=== PATIENT | female | born 1980 | race Caucasian/White ===

== ENCOUNTER 2018-12-13 11:05 | Emergency (ER) | payer OTHER, SELFPAY ==
[2018-12-13 11:07] VITALS: BP 127/93; PULSE 74; RESP 16; TEMP 36.8; O2SAT 99; BMI 23.8
--- NOTE | 2018-12-13 11:41 | PC.NURSE ---
Pt out in the sun and has sunburn bilateral legs, right>left. Applied a mix of silvidene cream and lidocaine ointment to area then covered it with telfa and kerlix. Instructed pt how to apply.
--- NOTE | 2018-12-13 12:15 | ED.LOWEXIN ---
HPI - Extremity Injury (Lower) <Ari JosephCALIP - Last Filed: 12/13/18 23:54> General Chief Complaint: Extremity Injury, Lower Stated Complaint: Rt foot swollen,blisters Time Seen by Provider: 12/13/18 11:26 Source: patient Mode of arrival: ambulatory Limitations: no limitations History of Present Illness HPI Narrative: This is a pleasant 38-year-old female, nonsmoker, with history of Sharath's disease who presents with first-degree sunburn to bilateral legs and with a small blister in right medial knee region on . She reports she was in outdoor during afternoon helping her friend and had sustained a first-degree sunburn to right medial thigh to ankle and left lateral thigh to calf area. Later on she developed multiple very fine vesicles in the right medial knee region along small round bulla in less than 2 cm in diameter. She complains of generalized swelling to right leg, pain, warmth to touch on affected areas. The pain is worse around the bulla when it is touched. She has used aloe with lidocaine cream and had taken Motrin for discomfort and also adequately hydrated with water last couple of days. She reports the swelling has improved as compared to yesterday. She denies fever, chills, nausea or vomiting. Related Data Home Medications Medication Instructions Recorded Confirmed multivitamin tablet 1 tab PO DAILY 11/24/17 12/13/18 Previous Rx's Medication Instructions Recorded metronidazole 1 % topical gel 1 applictn TOP DAILY #60 gram 11/24/17 tretinoin 0.1 % topical cream 1 applictn TOP BEDTIME #45 gram 11/24/17 Allergies Allergy/AdvReac Type Severity Reaction Status Date / Time Penicillins [PENICILLINS] Allergy Intermediate hives Verified 12/13/18 11:21 Review of Systems <Ari Joseph FLOATING DERRICK OPERATOR - Last Filed: 12/13/18 23:54> Review of Systems General: See HPI HEENT: Denies sinus pain, ear pain, sore throat, difficulty swallowing, dizziness. Respiratory: Denies dyspnea, cough, wheezing, hemoptysis, sputum. Cardiovascular: Denies chest pain, palpitations, orthopnea, edema. Gastrointestinal: Denies nausea, vomiting, abdominal pain, diarrhea, constipation, melena. : Denies dysuria, frequency, incontinence, hematuria, urinary retention. Musculoskeletal: Denies weakness, joint pain or bony pain. Skin: Sunburn on bilateral legs without small blisters on right medial knee, painful to be touched. Neurologic: Denies weakness, headache, numbness, change in speech, confusion, seizures, incoordination. Psychiatric: No concerning psychosocial issues. 12-point review of systems is negative except for those stated above. PFSH <OSCAR Herrera - Last Filed: 12/13/18 23:54> Surgical History Anesthesia (Resolved) History of breast augmentation (~2014) Family History Father Age: 82 Colon cancer Hypertension Type 1 diabetes Mother Age: 67 Type 1 diabetes Hypertension High cholesterol Grandfather Diabetes mellitus Sister Age: 61 Hypertension Sister Age: 59 Hypertension Grandmother No problems noted. Social History marital status: number of children: 2 household members: family lives independently: Yes education level: college occupational status: employed (RN) Smoking Status: Never smoker alcohol intake: current substance use type: does not use Family History Father Age: 82 Colon cancer Hypertension Type 1 diabetes Mother Age: 67 Type 1 diabetes Hypertension High cholesterol Grandfather Diabetes mellitus Sister Age: 61 Hypertension Sister Age: 59 Hypertension Grandmother No problems noted. Social History marital status: number of children: 2 household members: family lives independently: Yes education level: college occupational status: employed (RN) Smoking Status: Never smoker alcohol intake: current substance use type: does not use Exam <OSCAR Herrera - Last Filed: 12/13/18 23:54> Narrative Exam Narrative: GEN: Alert, oriented x 3, well appearing and nourished, and in no acute distress. Head: Normal cephalic, atraumatic. No scalp or temporal tenderness, palpable mass or rash. EYES: Pupils are equal, round, and reactive to light and accommodation. Extraocular muscles are intact bilaterally. There is no subconjunctival hemorrhage, exudate and sclera non-icteric. ENT: Hearing grossly intact. Nose without bleeding, purulent discharge. Mucous membrane moist, no mucosal lesion. Throat without erythema, tonsillar hypertrophy or exudate. Uvula in midline, airway patent. Neck: Trachea in midline. No JVD, non-tender without lymphadenopathy. No masses or thyroid megaly. Supple, non-tender and meningeal signs. CARDIAC: Normal regular rate and rhythm without murmurs, gallops, or rubs. No chest wall tenderness. No peripheral edema, cyanosis or pallor. Capillary refill is less than 2 seconds. RESPIRATORY: Lungs are cleat to auscultate bilaterally. No cough, wheezes, rales, or rhonchi. No stridor, respiratory distress, increase work of breathing, or accessary muscle used. ABD: Abdomen soft, nontender and non-distended. No guarding or rebound tenderness to palpate. Bowel sounds are normal in all 4 quadrants. There is no palpable masses or organomegaly. EXT: Full painless ROM of all extremities with no loss of sensation, strength, effusion or edema. SKIN: Superficial burn on medial aspect on R thigh to ankle and L lateral thigh to calf. Multiple very fine vesicles with a bulla size <2cm near R medial knee. R lower leg with mild non-pitting edema and warm to touch. NEUROLOGICAL: Alert and oriented to place, time and person. Sensation and motor function intact bilaterally. No facial droops, dysphasia. PSYCHIATRIC: Good judgement and reason, without hallucinations, abnormal affect or abnormal behaviors during the examination. Initial Vital Signs Initial Vital Signs: Vital Signs Temperature 98.2 F 12/13/18 11:07 Pulse Rate 74 12/13/18 11:07 Respiratory Rate 16 12/13/18 11:07 Blood Pressure 127/93 H 12/13/18 11:07 Pulse Oximetry 99 12/13/18 11:07 <Niki Scott MD - Last Filed: 12/15/18 07:44> Initial Vital Signs Initial Vital Signs: Vital Signs Temperature 98.2 F 12/13/18 11:07 Pulse Rate 74 12/13/18 11:07 Respiratory Rate 16 12/13/18 11:07 Blood Pressure 127/93 H 12/13/18 11:07 Pulse Oximetry 99 12/13/18 11:07 Course <OSCAR Herrera - Last Filed: 12/13/18 23:54> Orders Ordered: Discontinued Medications Lidocaine (Lidocaine Oint) 1 applic TOP NOW ONE Stop: 12/13/18 12:11 Last Admin: 12/13/18 12:37 Dose: 1 applic Silver Sulfadiazine (Silvadene) 1 applic TOP NOW ONE Stop: 12/13/18 12:11 Last Admin: 12/13/18 12:37 Dose: 1 applic Vital Signs - 8 hr 12/13/18 11:07 Temperature 98.2 F Pulse Rate 74 Respiratory Rate 16 Blood Pressure 127/93 H Pulse Oximetry 99 <Niki Scott MD - Last Filed: 12/15/18 07:44> Orders Ordered: Discontinued Medications Lidocaine (Lidocaine Oint) 1 applic TOP NOW ONE Stop: 12/13/18 12:11 Last Admin: 12/13/18 12:37 Dose: 1 applic Silver Sulfadiazine (Silvadene) 1 applic TOP NOW ONE Stop: 12/13/18 12:11 Last Admin: 12/13/18 12:37 Dose: 1 applic Vital Signs - 8 hr 12/13/18 11:07 Temperature 98.2 F Pulse Rate 74 Respiratory Rate 16 Blood Pressure 127/93 H Pulse Oximetry 99 MDM - Extremity Injury (Lower) <OSCAR Herrera - Last Filed: 12/13/18 23:54> Differential Diagnosis Likely other (superficial burn, cellulitis) MDM Narrative Medical decision making narrative: This is a pleasant 38 year old female presents with sunburn and she sustained superficial burn to bilateral legs with very small area of superficial partial thickness in right medial knee region along the superficial burn. She does not report constitutional symptoms. She reports her swelling to right leg has improved since yesterday. She complains of increasing pain whenever her right medial knee with multiple find vesicles and small bulla is attached unintentionally. Given her symptoms, her burn on right medial knee area was dressed after a mixture of EMLA cream and Silvadene ointment applied. She was advised not to pop the bulla to avoid increasing risk for infection. We discussed red flag symptoms for signs and symptoms of infection such as increasing pain/redness/warmth, fever, chills, purulent discharge. She was advised to use the rest of the medications that used in ED to address her right medial knee for comfort and to prevent infection. No further questions expressed by patient and she agrees with the plan of treatment. Discharge Plan Departure Patient Disposition: Home Clinical Impression: Burn from the sun Discharge Date/Time: 12/13/18 12:47 Interventions: ED Discharge Assessment Last Done: 12/13/18 12:46 Instructions: DI for Sunburn Activity Restrictions/Additional Instructions: You have been diagnosed with [ sunburn on your legs. There's a small 2nd degree burn to R medial leg and large 1st degree burn to bilateral leg ]. What to do: *Take your medications as directed. It is okay to take [id number] Tylenol and/or Motrin as needed for pain and inflammation. Please follow the directions on the bottle. He could also use cool compresses, aloe based gels, calamine lotion or bacitracin/Neosporin on affected painful area with a dressing. *Follow up with your primary care provider in 2-3 days, call for an appointment. Let them know you were seen in the ED and that we asked you to be seen in follow up. *Return to ED if you have any new, worsening, or concerning symptoms, such as [increasing pain/warmth,spreading redness, fever, purulent discharge, chest pain, difficulty, any acute concerns]. Prescriptions: No Action multivitamin tablet 1 tab PO DAILY RF: 0 tretinoin [Retin-A] 0.1 % cream 1 applictn TOP BEDTIME Qty: 45 RF: 1 metronidazole [Metrogel] 1 % gel 1 applictn TOP DAILY Qty: 60 RF: 1 Referrals: Alissa Stephen DO [Primary Care Provider] -
[2018-12-13 12:34] VITALS: BP 133/77; PULSE 56; RESP 15; O2SAT 100
[2018-12-13] MEDS: SILVER SULFADIAZINE 1% CREAM 25 GM 1 APPLIC TOP (12:37)
[2018-12-13] MEDS: LIDOCAINE 5% OINT 35 GM 1 APPLIC TOP (12:37)
== END 2018-12-13 12:47 | disposition home or self-care (01) ==
PROVIDERS: Emergency Provider Nurse Practitioner Family; PCP Family Medicine
DX: L55.9 Sunburn, unspecified (principal)
CPT/HCPCS: 99282; 99283

== ENCOUNTER → 2019-06-03 11:11 | Outpatient (CLI) | payer OTHER, SELFPAY ==
[2019-06-03 12:32] LABS: Bilirubin Urine UA NEGATIVE (NEGATIVE); Color Urine UA YELLOW; Glucose Urine UA NEGATIVE (Negative); Ketones Urine UA NEGATIVE (NEGATIVE); Leukocyte Esterase Urine UA 2+ (NEGATIVE); Nitrite Urine UA NEGATIVE (Negative); Occult Blood Urine UA 3+ (Negative); Protein Urine UA NEGATIVE (Negative); Specific Gravity Urine UA <=1.005 (1.000-1.035); Urobilinogen Urine UA 0.2 E.U./dL (0.2)
[2019-06-03 12:42] LABS: Appearance Urine UA Slightly Cloudy; pH Urine UA 6.5 (4.5-8.0)
[2019-06-03 12:43] LABS: Amorphous Sediment Urine 1+; Bacteria Urine Moderate (10-30); Culture Indicated Urine Specimen Cultured; RBC Urine 1-5/HPF (0-5/HPF); Squamous Epithelial Cell Urine 1-5 /HPF (0-5/HPF); WBC Urine 30-100/HPF (0-5/HPF)
== END ==
PROVIDERS: PCP Family Medicine; Visit Provider Family Medicine
DX: R30.0 Dysuria (principal); R35.0 Frequency of micturition; R39.15 Urgency of urination
CPT/HCPCS: 81001; 87077; 87086; 87186

== ENCOUNTER → 2019-12-01 09:01 | Outpatient (CLI) | payer OTHER, SELFPAY ==
[2019-12-01 10:23] LABS: Appearance Urine UA CLOUDY; Bilirubin Urine UA NEGATIVE (NEGATIVE); Color Urine UA YELLOW; Glucose Urine UA NEGATIVE (Negative); Ketones Urine UA TRACE (NEGATIVE); Leukocyte Esterase Urine UA 2+ (NEGATIVE); Nitrite Urine UA POSITIVE (Negative); Occult Blood Urine UA 3+ (Negative); Protein Urine UA 2+ (Negative); Urobilinogen Urine UA 0.2 E.U./dL (0.2)
[2019-12-01 10:24] LABS: pH Urine UA 5.5 (4.5-8.0)
[2019-12-01 10:44] LABS: Bacteria Urine Many (>30); Culture Indicated Urine Specimen Cultured; Mucus Urine 1+ (Negative); RBC Urine >100/HPF (0-5/HPF); Squamous Epithelial Cell Urine 1-5 /HPF (0-5/HPF); WBC Urine >100/HPF (0-5/HPF)
== END ==
PROVIDERS: PCP Family Medicine; Referring Provider Family Medicine; Visit Provider Family Medicine
DX: R30.0 Dysuria (principal); R35.0 Frequency of micturition; R39.15 Urgency of urination
CPT/HCPCS: 81001; 87077; 87086; 87186

== ENCOUNTER → 2020-01-05 15:08 | Outpatient (CLI) | payer OTHER, SELFPAY ==
[2020-01-05 15:40] LABS: Appearance Urine UA CLOUDY; Bilirubin Urine UA NEGATIVE (NEGATIVE); Color Urine UA YELLOW; Glucose Urine UA NEGATIVE (Negative); Ketones Urine UA TRACE (NEGATIVE); Leukocyte Esterase Urine UA 2+ (NEGATIVE); Nitrite Urine UA NEGATIVE (Negative); Occult Blood Urine UA 3+ (Negative); Protein Urine UA NEGATIVE (Negative); Specific Gravity Urine UA 1.015 (1.000-1.035); Urobilinogen Urine UA 0.2 E.U./dL (0.2)
[2020-01-05 15:43] LABS: pH Urine UA 5.5 (4.5-8.0)
[2020-01-05 15:49] LABS: Bacteria Urine Moderate (10-30); Culture Indicated Urine Specimen Cultured; RBC Urine 10-30/HPF (0-5/HPF); Squamous Epithelial Cell Urine 0-1 /HPF (0-5/HPF); WBC Urine >100/HPF (0-5/HPF)
== END ==
PROVIDERS: PCP Family Medicine; Referring Provider Family Medicine; Visit Provider Family Medicine
DX: R30.0 Dysuria (principal)
CPT/HCPCS: 81001; 87077; 87086; 87147; 87186

== ENCOUNTER → 2020-05-26 15:08 | Outpatient (CLI) | payer OTHER, SELFPAY ==
[2020-05-26] MEDS: COVID-19 VACC(MODERNA-1)/PF 100 MCG/0.5 ML VIAL IM (15:15)
== END ==
PROVIDERS: PCP Family Medicine; Visit Provider Internal Medicine
DX: Z23 Encounter for immunization (principal)
CPT/HCPCS: 0011A; 91301

== ENCOUNTER → 2020-06-22 15:39 | Outpatient (CLI) | payer OTHER, SELFPAY ==
[2020-06-22] MEDS: COVID-19 VACC #2, MRNA(MOD) 100 MCG/0.5 ML VIAL IM (15:45)
== END ==
PROVIDERS: PCP Family Medicine; Visit Provider Internal Medicine
DX: Z23 Encounter for immunization (principal)
CPT/HCPCS: 0012A; 91301

== ENCOUNTER → 2020-08-01 16:54 | Outpatient (CLI) | payer OTHER, SELFPAY ==
[2020-08-01 17:28] LABS: Add Manual Diff / Slide Review NO; Basophils Absolute Auto 100 /uL (0-100); Basophils Percent Auto 0.7 % (0-2); Eosinophils Absolute Auto 100 /uL (0-450); Eosinophils Percent Auto 1.4 % (2-4); Hematocrit 38.9 % (36-46); Hemoglobin 13.4 g/dL (12.0-16.0); Lymphocytes Absolute Auto 2900 /uL (1100-4500); Lymphocytes Percent Auto 35.3 % (25-40); Mean Corpuscular HGB Conc 34.5 % (30-36); Mean Corpuscular Hemoglobin 30.8 PG (26-34); Mean Corpuscular Volume 89.4 fL (80-100); Monocytes Absolute Auto 600 /uL (0-900); Monocytes Percent Auto 7.1 % (3-14); Neutrophils Absolute Auto 4600 /uL (1500-7000); Neutrophils Percent Auto 55.5 % (50-75); Platelet Count 246 X10^3/uL (150-400); Red Blood Cell Count 4.36 X10^6/uL (4.0-5.2); Red Cell Distribution Width 12.6 % (11.6-14.8); White Blood Cell Count 8.3 X10^3/uL (4.5-11.0)
[2020-08-01 17:39] LABS: Alanine Aminotransferase 20 IU/L (<35); Albumin 4.6 g/dL (3.5-5.0); Albumin Globulin Ratio 1.6 (1.0-2.8); Alkaline Phosphatase 74 U/L (38-126); Aspartate Aminotransferase 32 IU/L (14-36); BUN Creatinine Ratio 22.2 (6-22); Bilirubin Total 0.2 mg/dL (0.2-1.3); Blood Urea Nitrogen 20 mg/dL (7-17); Calcium 9.4 mg/dL (8.4-10.2); Carbon Dioxide 32 mmol/L (22-32); Chloride 100 mmol/L (98-107); Estimated Glomerular Filt Rate > 60.0 mL/min (>60); Globulin 2.9 g/dL (1.7-4.1); Glucose 92 mg/dL (70-100); HEMOLYSIS < 15 (0-50); Potassium 3.9 mmol/L (3.4-5.1); Sodium 136 mmol/L (137-145); Total Protein 7.5 g/dL (6.3-8.2)
[2020-08-01 18:15] LABS: TSH w/ Reflex to FT4 3.18 uIU/mL (0.47-4.68)
== END ==
PROVIDERS: PCP Family Medicine; Referring Provider Family Medicine; Visit Provider Family Medicine
DX: N97.9 Female infertility, unspecified (principal)
CPT/HCPCS: 36415; 80053; 82397; 84443; 85025

== ENCOUNTER → 2020-09-22 12:19 | Outpatient (CLI) | payer OTHER, SELFPAY ==
[2020-09-22 12:57] LABS: Add Manual Diff / Slide Review NO; Basophils Absolute Auto 0 /uL (0-100); Basophils Percent Auto 0.4 % (0-2); Eosinophils Absolute Auto 0 /uL (0-450); Eosinophils Percent Auto 0.5 % (2-4); Hematocrit 36.6 % (36-46); Hemoglobin 12.8 g/dL (12.0-16.0); Lymphocytes Absolute Auto 2400 /uL (1100-4500); Lymphocytes Percent Auto 31.7 % (25-40); Mean Corpuscular Volume 88.5 fL (80-100); Monocytes Absolute Auto 500 /uL (0-900); Monocytes Percent Auto 6.6 % (3-14); Neutrophils Absolute Auto 4700 /uL (1500-7000); Neutrophils Percent Auto 60.8 % (50-75); Platelet Count 232 X10^3/uL (150-400); Red Blood Cell Count 4.14 X10^6/uL (4.0-5.2); Red Cell Distribution Width 12.4 % (11.6-14.8); White Blood Cell Count 7.7 X10^3/uL (4.5-11.0)
[2020-09-22 13:00] LABS: Appearance Urine UA CLEAR; Bilirubin Urine UA NEGATIVE (NEGATIVE); Color Urine UA YELLOW; Glucose Urine UA NEGATIVE (Negative); Ketones Urine UA NEGATIVE (NEGATIVE); Leukocyte Esterase Urine UA NEGATIVE (NEGATIVE); Nitrite Urine UA NEGATIVE (Negative); Occult Blood Urine UA NEGATIVE (Negative); Protein Urine UA NEGATIVE (Negative); Specific Gravity Urine UA 1.015 (1.000-1.035); Urobilinogen Urine UA 0.2 E.U./dL (0.2)
[2020-09-22 13:34] LABS: Free T4, Direct Thyroxine 1.42 ng/dL (0.78-2.19)
[2020-09-22 13:48] LABS: Thyroid Stimulating Hormone 1.56 uIU/mL (0.47-4.68)
[2020-09-23 06:10] LABS: RPR Screen Non Reactive (Non Reactive)
[2020-09-23 08:11] LABS: Varicella IgG Antibody 1475 index (Immune >165)
[2020-09-25 16:24] LABS: Hepatitis B Surface Antigen NEGATIVE s/c (NEGATIVE)
[2020-09-25 17:33] LABS: HIV 1 & 2 Ab/Ag 4th Gen Combo NEGATIVE (NEGATIVE); Hep C Virus Ab w/Reflex Quant NEGATIVE s/c (NEGATIVE)
== END ==
PROVIDERS: PCP Family Medicine; Referring Provider Family Medicine; Visit Provider Family Medicine
DX: Z34.81 Encounter for supervision of other normal pregnancy, first trimester (principal); E06.3 Autoimmune thyroiditis
CPT/HCPCS: 36415; 80055; 81003; 84439; 84443; 86787; 86803; 86850; 86900; 86901; 87086; 87389

== ENCOUNTER → 2020-10-10 14:03 | Outpatient (CLI) | payer OTHER, SELFPAY ==
--- NOTE | 2020-10-10 14:04 | DI.US.S_ITS ---
PROCEDURE: US OB <= 14 WEEKS FETUS INDICATIONS: Early viability/dating; LMP 08/16/20 OUTSIDE/PRIOR DATING DATA: Last menstrual period (LMP): 08/16/20. LMP-based estimated date of delivery (RICK): 05/23/21. First dating scan (date and location): 10/10/20. Estimated date of delivery (RICK) from first dating scan: 05/23/21. TECHNIQUE: Real-time scanning was performed of the fetus and maternal pelvic organs, with image documentation. Endovaginal scanning was also performed to better visualize the fetus and maternal ovaries. COMPARISON: None. FINDINGS: Embryo: Single living intrauterine fetus is present with a crown-rump length measuring 1.6 cm, 7 weeks 6 days. heart rate measures 137 beats per minute. Yolk sac is visualized. There is a perigestational hemorrhage measuring 4 x 5 x 11 mm. Cervical length 4.3 cm. Measurement variability in dating: +/- 4 weeks by LMP, +/- 7 days by mean sac diameter (use before 6 weeks gestation if crown-rump length not able to be measured), +/- 5 days by crown-rump length (up to 8 weeks 6 days gestation), +/- 7 days by crown-rump length (up to 13 weeks 6 days gestation). Maternal organs: Ovaries unremarkable bilaterally. . IMPRESSION: Single living intrauterine fetus with a gestational age measuring 7 weeks 6 days. Ultrasound RICK of 05/23/21 concordant with the reported LMP as above Incidentally noted small perigestational hemorrhage. Dictated by: John Castillo M.D. on 10/10/2020 at 15:38 Approved by: John Castillo M.D. on 10/10/2020 at 15:40
== END ==
PROVIDERS: PCP Family Medicine; Referring Provider Family Medicine; Visit Provider Family Medicine
DX: Z36.87 Encounter for antenatal screening for uncertain dates (principal); Z3A.01 Less than 8 weeks gestation of pregnancy
CPT/HCPCS: 76801

== ENCOUNTER → 2020-12-29 16:06 | Outpatient (CLI) | payer OTHER, SELFPAY ==
[2020-12-29 18:52] LABS: TSH w/ Reflex to FT4 1.38 uIU/mL (0.47-4.68)
[2020-12-30 07:16] LABS: Alpha Fetoprotein 36.2 ng/mL (0.0-8.3)
== END ==
PROVIDERS: PCP Family Medicine; Referring Provider Family Medicine; Visit Provider Family Medicine
DX: E06.3 Autoimmune thyroiditis (principal); Z3A.15 15 weeks gestation of pregnancy
CPT/HCPCS: 36415; 82105; 84443

== ENCOUNTER → 2021-01-02 11:41 | Outpatient (CLI) | payer OTHER, SELFPAY ==
--- NOTE | 2021-01-02 15:05 | DI.US.S_ITS ---
PROCEDURE: OB >= 14 WEEKS FETUS INDICATIONS: ANATOMY OUTSIDE/PRIOR DATING DATA: Last menstrual period (LMP): 08/16/2020. LMP-based estimated date of delivery (RICK): 05/23/2021 . First dating scan (date and location): 10/10/2020 . Estimated date of delivery (RICK) from first dating scan: 05/23/2021 . TECHNIQUE: Real-time scanning was performed of the fetus, with image documentation and biometric measurements. Endovaginal scanning: No COMPARISON: Outside Facility, [facility], 11/08/2020, 12:50. [facility], OB <= 14 WEEKS FETUS, 10/10/2020, 13:16. FINDINGS: General: A single living intrauterine gestation is present. Presentation: Vertex. Placenta: Placental position is anterior , without previa. Amniotic fluid index: 15.1 cm, normal range is 5-24 cm. heart rate: 150 beats per minute. Maternal cervical canal: 3. 0 cm long. Normal lower limit is 2.5 cm. biometrics: Biparietal diameter: 20 weeks 2 days Head circumference: 19 weeks 6 days Abdominal circumference: 20 weeks 5 days Femur length: 19 weeks 4 days Estimated gestational age from initial scan: 19 weeks 6 days Composite gestational age from present scan: 20 weeks 1 day Estimated weight and percentile: 334 g; 61st percentile. Measurement variability for biometric dating: +/- 7 days from 14 weeks to 15 weeks 6 days gestation, +/- 10 days from 16 weeks to 21 weeks 6 days gestation, +/- 2 weeks from 22 weeks to 27 weeks 6 days gestation, +/- 3 weeks for 28 weeks gestation or later. weight reference: 4500 g or EFW >90/95% is considered macrosomia or large for gestational age. EFW <10% is small for gestational age. EFW 5% or less is considered intra-uterine growth restriction. Anatomic survey: Neuro: Ventricles are non-dilated at less than 10 mm. Cisterna magna is normal at 3-11 mm. Cerebellum is normal in size and morphology. Nuchal skin fold: Normal at less than 6 mm between 14-21 weeks gestational age. Face: Nose and lips, facial profile are normal. Spine: No evidence for spina bifida. Heart: 4-chambered heart is present, with normal ventricular outflow tracts. Diaphragm: Diaphragm is intact. Stomach: Left-sided stomach is present. Kidneys: No hydronephrosis. Normal is less than 5 mm in 2nd trimester, less than 7 mm in 3rd trimester. Cord: 3-vessel cord has orthotopic insertion. Bladder: Normal in size. Extremities: All 4 extremities identified. IMPRESSION: 1. Normal interval growth. 2. Normal anatomic survey. Dictated by: Gilbert Fajardo [facility] Interpreted: Gal Laguerre MD on 01/02/2021 at 16:32 Transcribed by: ELSI on 01/02/2021 at 16:35 Approved by: Martin Soria M.D. on 01/03/2021 at 13:36
[2021-01-04 18:18] LABS: AFP Value 35.2 ng/mL (.); Gest Age on Col Date 19.9 weeks (.); Gestational Age Ultrasound (.); Insulin Dep Diabetes No (.); OSBR Risk 1IN 10000 (.); Results Report (.); Test Results *Screen Negative* (.)
== END ==
PROVIDERS: PCP Family Medicine; Referring Provider Family Medicine; Visit Provider Family Medicine
DX: Z36.89 Encounter for other specified antenatal screening (principal); Z3A.20 20 weeks gestation of pregnancy
CPT/HCPCS: 36415; 76811; 82105

== ENCOUNTER → 2021-01-15 14:13 | Outpatient (CLI) | payer OTHER, SELFPAY ==
[2021-01-15 16:19] LABS: COVID19 -Nasal RAPID Negative (Negative)
== END ==
PROVIDERS: PCP Family Medicine; Visit Provider Physician Assistant
DX: Z20.822 Contact with and (suspected) exposure to COVID-19 (principal)
CPT/HCPCS: 87635

== ENCOUNTER → 2021-01-18 10:55 | Outpatient (CLI) | payer OTHER, SELFPAY ==
[2021-01-18 13:40] LABS: COVID19 -Nasal RAPID Negative (Negative)
== END ==
PROVIDERS: PCP Family Medicine; Referring Provider Nurse Practitioner; Visit Provider Nurse Practitioner
DX: Z20.822 Contact with and (suspected) exposure to COVID-19 (principal)
CPT/HCPCS: 87635

== ENCOUNTER → 2021-01-24 10:07 | Outpatient (CLI) | payer OTHER, SELFPAY ==
[2021-01-24 13:38] LABS: COVID19 -Nasal RAPID Negative (Negative)
== END ==
PROVIDERS: PCP Family Medicine; Visit Provider Physician Assistant
DX: Z20.822 Contact with and (suspected) exposure to COVID-19 (principal)
CPT/HCPCS: 87635

== ENCOUNTER → 2021-03-02 16:52 | Outpatient (CLI) | payer OTHER, SELFPAY ==
[2021-03-02 18:12] LABS: Hematocrit 33.4 % (36-46); Hemoglobin 11.5 g/dL (12.0-16.0)
[2021-03-02 18:35] LABS: GTT (PREG) 1 Hour PP 50gm Dose 117 mg/dL (76-139)
[2021-03-02 19:05] LABS: TSH w/ Reflex to FT4 1.42 uIU/mL (0.47-4.68)
== END ==
PROVIDERS: PCP Family Medicine; Referring Provider Family Medicine; Visit Provider Family Medicine
DX: O99.280 Endocrine, nutritional and metabolic diseases complicating pregnancy, unspecified trimester (principal); E06.3 Autoimmune thyroiditis; Z3A.26 26 weeks gestation of pregnancy
CPT/HCPCS: 36415; 82950; 84443; 85014; 85018

== ENCOUNTER 2021-03-19 16:35 | Observation (INO) | payer OTHER, SELFPAY ==
--- NOTE | 2021-03-19 17:34 | DI.US.S_ITS ---
PROCEDURE: US OB BIOPHYSICAL PROFILE INDICATIONS: arrhythmia OUTSIDE/PRIOR DATING DATA: Last menstrual period (LMP): July 19, 2020. LMP-based estimated date of delivery (RICK): May 23, 2021. First dating scan (date and location): October 10, 2020. Estimated date of delivery (RICK) from first dating scan: May 23, 2021. TECHNIQUE: Real-time scanning was performed of the fetus for biophysical profile, with image documentation. Color and pulse Doppler interrogation was also performed of the umbilical artery near its insertion into the placenta. Endovaginal scanning: Performed COMPARISON: None. FINDINGS: General: A single living intrauterine gestation is present. Presentation: Cephalic Placenta: Placental position is anterior, without previa. Amniotic fluid index: 12.5 cm, normal range is 5-24 cm. heart rate: 136 beats per minute. Maternal cervical canal: Closed and 4.8 cm long. Normal lower limit is 2.5 cm. Estimated gestational age from initial scan: 30 weeks 5 days. Biophysical profile: Tone: 2 points. Movement: 2 points. Respiration: 2 points. Largest pocket of fluid: 2 points. Umbilical artery Doppler: Not measured. IMPRESSION: 1. Single living intrauterine . 2. Normal amniotic fluid index. 3. Biophysical profile score 8/8. Dictated by: Jessie Hernandez MD, PhD on 03/19/2021 at 17:42 Approved by: Jessie Hernandez MD, PhD on 03/19/2021 at 17:44
--- NOTE | 2021-03-19 17:34 | P.TNLD_ITS ---
Visit Information Visit Information Date of evaluation: 03/19/21 Primary OB Provider: Alissa Stephen Reason for Evaluation: Yes non-stress test non-stress test reason: other ( arrhythmia heard with doppler in clinic) Vital Signs Vital Signs: T 36.4 BP 114.68 P 67 PFSH Medical History Advanced maternal age (AMA) in Hypothyroidism (~2012) Hypothyroidism affecting Pelvic floor dysfunction (10/01/16) Surgical History Anesthesia History of breast augmentation (~2014) [place] teeth extracted (~1999) Family History Father Hypertension Type 1 diabetes Prostate cancer Mother Age: 69 High cholesterol Grandfather Diabetes mellitus Sister Age: 63 Hypertension Sister Age: 61 Hypertension Grandmother Hypertension Stroke Grandmother No problems noted. 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 ) Type(s) of exercise: bicycling, regular exercise, weight lifting and resistance training frequency: 3-4 times per week duration: 60-90 minutes/day Evaluation Evaluation Baseline heart rate: 130 Variability: Moderate (11-25) monitor accelerations: Present Monitor Decelerations: Absent Diagnosis, Plan/Disposition Final Diagnosis (1) arrhythmia affecting , antepartum: Status: Acute (2) 30 weeks gestation of : Status: Acute (3) Advanced maternal age (AMA) in : Status: Acute (4) Hypothyroidism affecting : Status: Acute Plan/Disposition Plan: 41 year old at 30 weeks and 5 days with well-controlled hypothyroidism with new arrhythmia found today. monitoring was very difficult due to arrhythmia the first hour. Discussed case with Dr. Melendez with [facility]. She recommended outpatient referral to MFM and BPP due to difficulty monitoring. While waiting for US we did get a reactive 20 minutes on the monitor. BPP was 8/8. Patient counseled on movement monitoring and will return to the center should she note decreased movement. She should be seen by MFM in the next 1-2 weeks and will follow up in clinic as scheduled as well. OB Disposition: home
== END 2021-03-19 18:35 | disposition home or self-care (01) ==
PROVIDERS: Admitting Provider Family Medicine; PCP Family Medicine; Referring Provider Family Medicine; Visit Provider Family Medicine
DX: O36.8330 Maternal care for abnormalities of the fetal heart rate or rhythm, third trimester, not applicable or unspecified (principal); O99.283 Endocrine, nutritional and metabolic diseases complicating pregnancy, third trimester; O09.523 Supervision of elderly multigravida, third trimester; E03.9 Hypothyroidism, unspecified; Z3A.30 30 weeks gestation of pregnancy
CPT/HCPCS: 59025; 59050; 76819; G0378; G0379

== ENCOUNTER → 2021-04-09 15:22 | Outpatient (CLI) | payer OTHER, SELFPAY ==
[2021-04-09 16:50] LABS: Appearance Urine UA CLEAR; Bilirubin Urine UA NEGATIVE (NEGATIVE); Color Urine UA YELLOW; Glucose Urine UA NEGATIVE (Negative); Ketones Urine UA NEGATIVE (NEGATIVE); Leukocyte Esterase Urine UA 1+ (NEGATIVE); Nitrite Urine UA NEGATIVE (Negative); Occult Blood Urine UA TRACE-LYSED (Negative); Protein Urine UA NEGATIVE (Negative); Specific Gravity Urine UA <=1.005 (1.000-1.035); Urobilinogen Urine UA 0.2 E.U./dL (0.2)
[2021-04-09 17:07] LABS: pH Urine UA 5.5 (4.5-8.0)
[2021-04-09 17:09] LABS: Bacteria Urine Moderate (10-30); Culture Indicated Urine Specimen Cultured; RBC Urine 0-1/HPF (0-5/HPF); WBC Urine 5-10/HPF (0-5/HPF)
== END ==
PROVIDERS: PCP Family Medicine; Referring Provider Family Medicine; Visit Provider Family Medicine
DX: O26.899 Other specified pregnancy related conditions, unspecified trimester (principal); R30.0 Dysuria
CPT/HCPCS: 81001; 87077; 87086; 87186

== ENCOUNTER 2021-04-10 08:29 | Inpatient (IN) | payer OTHER, SELFPAY ==
--- NOTE | 2021-04-10 08:59 | P.HPOB_ITS ---
OB HPI Date/Time Date of admission: 04/10/21 Date Patient Seen: 04/10/21 Time Patient Seen: 09:00 History of Present Condition Chief complaint: Pyelonephritis RICK Calculator Estimated Delivery Date Method Current WG Current Estimate 05/23/21 LMP (Certain) 33w 6d Estimated Gestational Age (weeks): 33w6d : 4 Para: 2 Narrative: This is a 41-year-old at 33 weeks and 6 days gestation with approximately 36 hours of pain with urination, fatigue and fevers overnight up to 100.4. This morning she does have some lower back pain in addition to pain with urination and suprapubic tenderness. She provided a urinary sample as an outpatient last night which came back positive this morning for greater than 100,000 gram- negative bacilli. She has been hydrating well and without nausea or vomiting. Denies contractions or cramping other than 1 contraction this morning. No leaking or bleeding and baby is active. has been relatively uncomplicated. She did have a echo recently for an arrhythmia. Arrhythmia felt to be due to benign PACs. echo was normal. No further workup warranted. Preadmission Labs Last OB Lab Results: Blood Type O Positive 09/22/20 12:09/22/20 Antibody Screen Negative 09/22/20 12:09/22/20 Hematocrit 33.3 % (36-46) L 04/10/21 09:19 04/10/21 Hemoglobin 11.8 g/dL (12.0-16.0) L 04/10/21 09:19 04/10/21 Hepatitis B Surface Antigen Negative s/c (NEGATIVE) 09/22/20 12:09/22/20 Hepatitis C Antibody Negative s/c (NEGATIVE) 09/22/20 12:09/22/20 Rubella Antibody 162.0 IU/mL (>15) 09/22/20 12:22 09/22/20 Varicella-Zoster IgG Antibody 1475 index (Immune >165) 09/22/20 12:22 Glucose 1 Hour 117 mg/dL (76-139) 03/02/21 16:54 03/02/21 Genetic Screens: Cell-free DNA: Normal and Alpha-fetoprotein: Normal Prior (ies) Past Pregnancies Del. Date GA/Weeks Labor Lgth Wt Sex Route Outcome Anesthesia Place Delv Breastfeed Preg Comp Name 12/19/08 40.5 5 8 lb 6 oz Male vaginal live - full ter m epidural [facility] 10 mos. none post-dates induction Luis A Ibrahim 02/16/10 7-8 spontaneous 12/25/10 41.2 1 8 lb 8 oz Male vaginal live - full ter m epidural [place], [place] [facility] 10 mos. post-dates induction none Daniel Evaluation Evaluation Baseline heart rate: 135 Variability: Moderate (11-25) monitor accelerations: Present Monitor Decelerations: Absent Category of Tracing: Reactive PFSH Medical History Advanced maternal age (AMA) in Hypothyroidism (~2012) Hypothyroidism affecting Pelvic floor dysfunction (10/01/16) Surgical History Anesthesia History of breast augmentation (~2014) [place] teeth extracted (~1999) Family History Father Hypertension Type 1 diabetes Prostate cancer Mother Age: 69 High cholesterol Grandfather Diabetes mellitus Sister Age: 63 Hypertension Sister Age: 61 Hypertension Grandmother Hypertension Stroke Grandmother No problems noted. Grandfather Prostate cancer Social History marital status: unmarried,living together number of children: 2 household members: significant other and family lives independently: Yes caregiver/support person: No housing: house pets and animals: Yes (1 dog: safe.) education level: college occupational status: employed current occupational exposures/hazards: No violet/adventism: Taoist special violet needs: No seatbelt use: always working smoke detector in home: Yes fire extinguisher in home: Yes carbon monox detector in home: Yes firearms in home: No do you feel safe at home: Yes Smoking Status: Never smoker second hand exposure: No alcohol intake: former substance use type: does not use during the past year weight has: remained stable well-balanced diet: daily or most days daily servings fruits/ve-4 caffeine: Yes (1 cup daily. ) Type(s) of exercise: bicycling, regular exercise, weight lifting and resistance training frequency: 3-4 times per week duration: 60-90 minutes/day Meds Home Medications and Allergies Home Medications Medication Instructions Recorded Confirmed Type vits no.126-ferrous fum 1 tab PO DAILY 90 Days #90 tab 09/25/20 04/10/21 Rx 28 mg iron-folic acid 800 mcg tablet (Classic ) levothyroxine 50 mcg tablet 50 mcg PO DAILY #90 tab 10/02/20 04/10/21 Rx Allergies Allergy/AdvReac Type Severity Reaction Status Date / Time Penicillins [PENICILLINS] Allergy Intermediate hives Verified 10/06/20 16:23 OB Exam Narrative Exam Narrative: Temperature 36.6? blood pressure 107/63 heart rate 67 HENMT Head: normal to inspection Resp Effort & Inspection: normal respiratory effort Auscultation: clear to auscultation bilaterally Cardio Rate: regular rate Rhythm: regular rhythm Extremities Lower extremity: Yes normal to inspection; No edema GI Inspection: other (Gravid) Other: No CVA tenderness. Tenderness is over the lower back. Objective Labs Result Diagrams: 04/10/21 09:19 04/10/21 09:19 Assessment and Plan Assessment and Plan Assessment and Plan narrative: 41-year-old at 33 weeks and 6 days with pyelonephritis based on positive urine culture and fever this morning. NST reactive. No concern for labor at this time. Will admit for empiric IV antibiotics while awaiting urine culture sensitivities. Continue IV fluids in addition to p.o. hydration. She was afebrile on admission but will treat fevers with Tylenol as needed. Hopefully she will be able to discharge home tomorrow once we can start an appropriate oral antibiotic.
[2021-04-10] MEDS: LACTATED RINGERS 1,000 ML 100 ML IV ×2 (09:30→19:08)
[2021-04-10 09:59] VITALS: BP 107/63
[2021-04-10 10:00] LABS: Add Manual Diff / Slide Review NO; Basophils Absolute Auto 0 /uL (0-100); Basophils Percent Auto 0.2 % (0-2); Eosinophils Absolute Auto 0 /uL (0-450); Eosinophils Percent Auto 0.4 % (2-4); Hematocrit 33.3 % (36-46); Hemoglobin 11.8 g/dL (12.0-16.0); Lymphocytes Absolute Auto 1400 /uL (1100-4500); Lymphocytes Percent Auto 13.3 % (25-40); Mean Corpuscular HGB Conc 35.4 % (30-36); Mean Corpuscular Hemoglobin 31.6 PG (26-34); Mean Corpuscular Volume 89.4 fL (80-100); Monocytes Absolute Auto 700 /uL (0-900); Monocytes Percent Auto 6.7 % (3-14); Neutrophils Absolute Auto 8200 /uL (1500-7000); Neutrophils Percent Auto 79.4 % (50-75); Platelet Count 203 X10^3/uL (150-400); Red Blood Cell Count 3.73 X10^6/uL (4.0-5.2); Red Cell Distribution Width 12.8 % (11.6-14.8); White Blood Cell Count 10.3 X10^3/uL (4.5-11.0)
[2021-04-10 10:12] LABS: Alanine Aminotransferase 16 IU/L (<35); Albumin 3.4 g/dL (3.5-5.0); Albumin Globulin Ratio 1.3 (1.0-2.8); Alkaline Phosphatase 67 U/L (38-126); Aspartate Aminotransferase 27 IU/L (14-36); BUN Creatinine Ratio 12.1 (6-22); Bilirubin Total 0.3 mg/dL (0.2-1.3); Blood Urea Nitrogen 8 mg/dL (7-17); Calcium 9.1 mg/dL (8.4-10.2); Carbon Dioxide 24 mmol/L (22-32); Chloride 104 mmol/L (98-107); Estimated Glomerular Filt Rate > 60.0 mL/min (>60); Globulin 2.7 g/dL (1.7-4.1); Glucose 90 mg/dL (70-100); HEMOLYSIS < 15 (0-50); Potassium 3.9 mmol/L (3.4-5.1); Sodium 134 mmol/L (137-145); Total Protein 6.1 g/dL (6.3-8.2)
[2021-04-10] MEDS: cefTRIAXone 1,000 MG in SODIUM CHLORIDE 0.9% 100 ML 200 ML IV (10:26)
[2021-04-10 11:13] LABS: COVID19 -Nasal RAPID Negative (Negative)
[2021-04-10] MEDS: ZOLPIDEM 5 MG TABLET PO (23:28)
--- NOTE | 2021-04-11 08:04 | P.DS_ITS ---
Discharge Providers Provider Date of admission: 04/10/21 08:29 Discharge Date: 04/11/21 Primary care physician: Alissa Stephen DO Discharge provider: Alissa Stephen DO Summary Hospital Course Date Patient Seen: 04/11/21 Time Patient Seen: 07:00 Diagnoses: Pyelonephritis in 34 weeks gestation Hospital Course: 41-year-old at 34 weeks gestation admitted due to pyelonephritis. She received ceftriaxone on admission for empiric coverage and will receive 1 more dose prior to discharge today. Urine culture returned with pansensitive E coli says she will transition to cefpodoxime on discharge to complete 2 weeks of antibiotics. Hospital course was uncomplicated and symptoms improved by the end of the first hospital day. She was without further fevers after admission. Serial NSTs were reactive. No concerns for labor. She was advised to hydrate well and reach out with any concerns. She will follow up in clinic as scheduled next week. Letter written for reduced hours at work. Discharge Diagnosis (1) 34 weeks gestation of : Status: Acute (2) Pyelonephritis affecting : Status: Acute Time Spent with Patient Time attestation: Total time spent providing and/or coordinating discharge services: Time spent: Greater than 30 minutes Objective Labs Result Diagrams: 04/10/21 09:19 04/10/21 09:19 Labs: Laboratory Results - last 24 hr 04/10/21 04/10/21 04/10/21 09:19 09:19 09:30 WBC 10.3 RBC 3.73 L Hgb 11.8 L Hct 33.3 L MCV 89.4 MCH 31.6 MCHC 35.4 RDW 12.8 Plt Count 203 Neut % (Auto) 79.4 H Lymph % (Auto) 13.3 L [place] % (Auto) 6.7 Eos % (Auto) 0.4 L Baso % (Auto) 0.2 Neut # (Auto) 8200 H Lymph # (Auto) 1400 [place] # (Auto) 700 Eos # (Auto) 0 Baso # (Auto) 0 Sodium 134 L Potassium 3.9 Chloride 104 Carbon Dioxide 24 BUN 8 Creatinine 0.66 Estimated GFR > 60.0 BUN/Creatinine Ratio 12.1 Glucose 90 Calcium 9.1 Total Bilirubin 0.3 AST 27 ALT 16 Alkaline Phosphatase 67 Total Protein 6.1 L Albumin 3.4 L Globulin 2.7 Albumin/Globulin Ratio 1.3 SARS-CoV-2 (PCR) Negative Exam Vital Signs (past 8 hours): Temperature 35.8? blood pressure 109/53 heart rate 68 respirations 16 General: Resting comfortably in bed, no distress CV: Regular rate and rhythm Lungs: Clear to auscultation bilaterally Abdomen: Gravid Extremities: No edema Discharge Plan Discharge Plan Patient Disposition: Home Discharge orders & Medications Prescriptions: New cefpodoxime 200 mg tablet 200 mg PO BID 12 Days Qty: 24 0RF Rx Instructions: must administer with a meal/food Continued Classic 28 mg iron- 800 mcg tablet 1 tab PO DAILY 90 Days Qty: 90 4RF Rx Instructions: May substitute any in patient's formulary that has 800 mcg folic acid. Thank you. levothyroxine 50 mcg tablet 50 mcg PO DAILY Qty: 90 3RF Follow up/Referrals: Alissa Stephen DO [Primary Care Provider] - 04/20/21 4:00 pm Visit Report/Discharge Packet Visit Report Forms: Patient Portal/API, Stroke Signs & Symptoms Discharge Data Primary Care Provider: Alissa Stephen Attending Provider: Alissa Stephen Admit Date/Time: 04/10/21 08:29
[2021-04-11] MEDS: cefTRIAXone 1,000 MG in SODIUM CHLORIDE 0.9% 100 ML 200 ML IV (10:09)
== END 2021-04-11 10:25 | disposition home or self-care (01) | DRG 833 ==
PROVIDERS: Admitting Provider Family Medicine; PCP Family Medicine; Referring Provider Family Medicine; Visit Provider Family Medicine
DX: O23.03 Infections of kidney in pregnancy, third trimester (principal); B96.20 Unspecified Escherichia coli [E. coli] as the cause of diseases classified elsewhere; Z3A.33 33 weeks gestation of pregnancy; O99.283 Endocrine, nutritional and metabolic diseases complicating pregnancy, third trimester; E03.9 Hypothyroidism, unspecified; Z20.822 Contact with and (suspected) exposure to COVID-19; O26.899 Other specified pregnancy related conditions, unspecified trimester; R30.0 Dysuria
CPT/HCPCS: 36415; 59025; 59050; 80053; 81001; 85025; 87077; 87086; 87186; 87635; 96360; 99222; 99238; C9803; G0378; G0379; J0696

== ENCOUNTER 2021-04-24 15:55 | Outpatient (CLI) | payer OTHER, SELFPAY ==
--- NOTE | 2021-04-24 16:09 | P.TNLD_ITS ---
Visit Information Visit Information Date of evaluation: 04/24/21 Primary OB Provider: Alissa Stephen Reason for Evaluation: Yes non-stress test non-stress test reason: other (AMA) Vital Signs Vital Signs: Temperature 35.8? blood pressure 111/70 heart rate 77 PFSH Medical History Advanced maternal age (AMA) in Hypothyroidism (~2012) Hypothyroidism affecting Pelvic floor dysfunction (10/01/16) Surgical History Anesthesia History of breast augmentation (~2014) [place] teeth extracted (~1999) Family History Father Hypertension Type 1 diabetes Prostate cancer Mother Age: 69 High cholesterol Grandfather Diabetes mellitus Sister Age: 63 Hypertension Sister Age: 61 Hypertension Grandmother Hypertension Stroke Grandmother No problems noted. Grandfather Prostate cancer Social History marital status: unmarried,living together number of children: 2 household members: significant other and family lives independently: Yes caregiver/support person: No housing: house pets and animals: Yes (1 dog: safe.) education level: college occupational status: employed current occupational exposures/hazards: No violet/orthodoxy: Zoroastrianism special violet needs: No seatbelt use: always working smoke detector in home: Yes fire extinguisher in home: Yes carbon monox detector in home: Yes firearms in home: No do you feel safe at home: Yes Smoking Status: Never smoker second hand exposure: No alcohol intake: former substance use type: does not use during the past year weight has: remained stable well-balanced diet: daily or most days daily servings fruits/ve-4 caffeine: Yes (1 cup daily. ) Type(s) of exercise: bicycling, regular exercise, weight lifting and resistance training frequency: 3-4 times per week duration: 60-90 minutes/day Evaluation Evaluation Baseline heart rate: 130 Variability: Moderate (11-25) monitor accelerations: Present Monitor Decelerations: Absent Category of Tracing: Reactive Diagnosis, Plan/Disposition Final Diagnosis (1) Advanced maternal age (AMA) in : Status: Acute (2) 35 weeks gestation of : Status: Acute Plan/Disposition Plan: 41-year-old 35 weeks and 6 days here for NST for advanced maternal age. NST reactive. Follow-up in clinic as scheduled later this week. OB Disposition: home
== END 2021-04-24 16:22 | disposition home or self-care (01) ==
LOC: LABOR 16:29 → OB 04-25 11:42
PROVIDERS: PCP Family Medicine; Referring Provider Family Medicine; Visit Provider Family Medicine
DX: O09.523 Supervision of elderly multigravida, third trimester (principal); Z3A.35 35 weeks gestation of pregnancy
CPT/HCPCS: 59025; G0378; G0379

== ENCOUNTER → 2021-04-27 15:35 | Outpatient (CLI) | payer OTHER, SELFPAY ==
[2021-04-28 18:28] LABS: Strep Grp B PCR NEG for Grp B Strep
== END ==
PROVIDERS: PCP Family Medicine; Visit Provider Family Medicine
DX: Z3A.36 36 weeks gestation of pregnancy (principal); N89.8 Other specified noninflammatory disorders of vagina; O26.899 Other specified pregnancy related conditions, unspecified trimester
CPT/HCPCS: 87210; 87653

== ENCOUNTER 2021-05-01 15:45 | Outpatient (CLI) | payer OTHER, SELFPAY ==
--- NOTE | 2021-05-01 16:43 | P.TNLD_ITS ---
Visit Information Visit Information Date of evaluation: 05/01/21 Primary OB Provider: Alissa Stephen Reason for Evaluation: Yes non-stress test non-stress test reason: other (AMA) Vital Signs Vital Signs: Temperature 36.3? blood pressure 111/74 heart rate 70 PFSH Medical History Advanced maternal age (AMA) in Hypothyroidism (~2012) Hypothyroidism affecting Pelvic floor dysfunction (10/01/16) Surgical History Anesthesia History of breast augmentation (~2014) [place] teeth extracted (~1999) Family History Father Hypertension Type 1 diabetes Prostate cancer Mother Age: 69 High cholesterol Grandfather Diabetes mellitus Sister Age: 63 Hypertension Sister Age: 61 Hypertension Grandmother Hypertension Stroke Grandmother No problems noted. Grandfather Prostate cancer Social History marital status: unmarried,living together number of children: 2 household members: significant other and family lives independently: Yes caregiver/support person: No housing: house pets and animals: Yes (1 dog: safe.) education level: college occupational status: employed current occupational exposures/hazards: No violet/quaker: Nondenominational special violet needs: No seatbelt use: always working smoke detector in home: Yes fire extinguisher in home: Yes carbon monox detector in home: Yes firearms in home: No do you feel safe at home: Yes Smoking Status: Never smoker second hand exposure: No alcohol intake: former substance use type: does not use during the past year weight has: remained stable well-balanced diet: daily or most days daily servings fruits/ve-4 caffeine: Yes (1 cup daily. ) Type(s) of exercise: bicycling, regular exercise, weight lifting and resistance training frequency: 3-4 times per week duration: 60-90 minutes/day Evaluation Evaluation Baseline heart rate: 120 Variability: Moderate (11-25) monitor accelerations: Present Monitor Decelerations: Absent Category of Tracing: Reactive Diagnosis, Plan/Disposition Final Diagnosis (1) 36 weeks gestation of : Status: Acute (2) Advanced maternal age (AMA) in : Status: Acute Plan/Disposition Plan: 41-year-old at 36 weeks gestation. NST reactive. In clinic as scheduled. OB Disposition: home
== END 2021-05-01 16:35 | disposition home or self-care (01) ==
LOC: OB 05-03 13:39
PROVIDERS: PCP Family Medicine; Referring Provider Family Medicine; Visit Provider Family Medicine
DX: O09.523 Supervision of elderly multigravida, third trimester (principal); Z3A.36 36 weeks gestation of pregnancy
CPT/HCPCS: 59025; G0378; G0379

== ENCOUNTER 2021-05-15 14:13 | Outpatient (CLI) | payer OTHER, SELFPAY ==
--- NOTE | 2021-05-15 14:45 | P.TNLD_ITS ---
Visit Information Visit Information Date of evaluation: 05/15/21 Primary OB Provider: Alissa Stephen Reason for Evaluation: Yes non-stress test Vital Signs Vital Signs: Temperature 36.3? blood pressure 114/83 heart rate 67 PFSH Medical History Advanced maternal age (AMA) in Hypothyroidism (~2012) Hypothyroidism affecting Pelvic floor dysfunction (10/01/16) Surgical History Anesthesia History of breast augmentation (~2014) [place] teeth extracted (~1999) Family History Father Hypertension Type 1 diabetes Prostate cancer Mother Age: 69 High cholesterol Grandfather Diabetes mellitus Sister Age: 63 Hypertension Sister Age: 61 Hypertension Grandmother Hypertension Stroke Grandmother No problems noted. Grandfather Prostate cancer Social History marital status: unmarried,living together number of children: 2 household members: significant other and family lives independently: Yes caregiver/support person: No housing: house pets and animals: Yes (1 dog: safe.) education level: college occupational status: employed current occupational exposures/hazards: No violet/yazidism: Zoroastrian special violet needs: No seatbelt use: always working smoke detector in home: Yes fire extinguisher in home: Yes carbon monox detector in home: Yes firearms in home: No do you feel safe at home: Yes Smoking Status: Never smoker second hand exposure: No alcohol intake: former substance use type: does not use during the past year weight has: remained stable well-balanced diet: daily or most days daily servings fruits/ve-4 caffeine: Yes (1 cup daily. ) Type(s) of exercise: bicycling, regular exercise, weight lifting and resistance training frequency: 3-4 times per week duration: 60-90 minutes/day Evaluation Evaluation Baseline heart rate: 130 Variability: Moderate (11-25) monitor accelerations: Present Monitor Decelerations: Absent Category of Tracing: Reactive Diagnosis, Plan/Disposition Final Diagnosis (1) 38 weeks gestation of : Status: Acute (2) Advanced maternal age (AMA) in : Status: Acute Plan/Disposition Plan: Reactive NST for advanced maternal age. Follow-up tomorrow night for induction. OB Disposition: home
== END 2021-05-15 14:45 | disposition home or self-care (01) ==
LOC: LABOR 14:16 → OB 05-21 14:37
PROVIDERS: PCP Family Medicine; Referring Provider Family Medicine; Visit Provider Family Medicine
DX: O09.523 Supervision of elderly multigravida, third trimester (principal); Z3A.38 38 weeks gestation of pregnancy
CPT/HCPCS: 59025; G0378; G0379

== ENCOUNTER 2021-05-16 19:33 | Inpatient (IN) | payer OTHER, SELFPAY ==
[2021-05-16 21:14] LABS: Add Manual Diff / Slide Review NO; Basophils Absolute Auto 100 /uL (0-100); Basophils Percent Auto 0.9 % (0-2); Eosinophils Absolute Auto 100 /uL (0-450); Eosinophils Percent Auto 0.8 % (2-4); Hematocrit 32.9 % (36-46); Hemoglobin 11.8 g/dL (12.0-16.0); Lymphocytes Absolute Auto 2000 /uL (1100-4500); Lymphocytes Percent Auto 25.8 % (25-40); Mean Corpuscular HGB Conc 35.8 % (30-36); Mean Corpuscular Hemoglobin 32.1 PG (26-34); Mean Corpuscular Volume 89.5 fL (80-100); Monocytes Absolute Auto 600 /uL (0-900); Monocytes Percent Auto 8.2 % (3-14); Neutrophils Absolute Auto 5000 /uL (1500-7000); Neutrophils Percent Auto 64.3 % (50-75); Platelet Count 185 X10^3/uL (150-400); Red Blood Cell Count 3.68 X10^6/uL (4.0-5.2); Red Cell Distribution Width 13.5 % (11.6-14.8); White Blood Cell Count 7.8 X10^3/uL (4.5-11.0)
[2021-05-16] MEDS: DINOPROSTONE VAG (CERVIDIL) 10 MG VAG (22:13)
[2021-05-16 22:33] VITALS: BP 113/56
[2021-05-16 22:50] LABS: COVID19 -Nasal RAPID Negative (Negative)
[2021-05-17] MEDS: LACTATED RINGERS 1,000 ML 100 ML IV ×2 (03:18→04:34)
--- NOTE | 2021-05-17 04:21 | PM.AN.REGBLK ---
Regional Block Pre-procedure Procedure: Continuous Lumbar Epidural for L&D Attending OB provider: Alissa Stephen PM/ROS narrative: term induction, no complications. ASA Class: II Labs: Hct 32.9 % (36-46) L 05/16/21 20:00 Plt Count 185 X10^3/uL (150-400) 05/16/21 20:00 Medications: Current Medications Generic Name Dose Route Start Last Admin Trade Name Freq PRN Reason Stop Dose Admin Calcium Carbonate 1,000 mg 05/16/21 19:38 Calcium Carbonate 500 Mg Tab PO Q2HR PRN Dyspepsia Carboprost Tromethamine 250 mcg 05/16/21 19:38 Carboprost 250 Mcg/Ml Ampul IM Q90M PRN Bleeding Fentanyl 50 mcg 05/16/21 19:38 Fentanyl 100 Mcg/2 Ml Inj IV Q1H PRN Pain, Moderate (4-6) Tranexamic Acid 1,000 mg/ 100 mls @ 200 mls/hr 05/16/21 19:38 Sodium Chloride IV NOW PRN Bleeding Lactated Ringer's 1,000 mls @ 100 mls/hr 05/16/21 19:45 05/17/21 03:18 Lactated Ringers IV 100 mls/hr CONT APRYL Administration Oxytocin/Lactated Ringer's 30 unit in 500 mls @ 200 mls/hr 05/16/21 19:38 Oxytocin Premix IV CONT PRN Bleeding Protocol Oxytocin/Lactated Ringer's 30 unit in 500 mls @ 3 mls/hr 05/16/21 19:45 Oxytocin Premix IV TITRATE APRYL Protocol 3 MILLIUNIT/MIN Methylergonovine Maleate 0.2 mg 05/16/21 19:38 Methylergonovine 0.2 Mg/Ml Vial IM NOW PRN Bleeding Methylergonovine Maleate 0.2 mg 05/16/21 19:38 Methylergonovine 0.2 Mg Tablet PO Q6HR PRN Heavy Bleeding Misoprostol 1,000 mcg 05/16/21 19:38 Misoprostol 200 Mcg Tablet UT NOW PRN Bleeding Misoprostol 400 mcg 05/16/21 19:38 Misoprostol 200 Mcg Tablet SL NOW PRN Bleeding Misoprostol 800 mcg 05/16/21 19:38 Misoprostol 200 Mcg Tablet UT NOW PRN Bleeding Nalbuphine HCl 2.5 mg 05/17/21 04:20 Nalbuphine 20 Mg/Ml Ampul IV Q10M PRN Pruritis Naloxone HCl 0.2 mg 05/16/21 19:38 Naloxone 0.4 Mg/Ml Vial IV Q2MIN PRN Opiate Reversal Ondansetron HCl 4 mg 05/16/21 19:38 Ondansetron 4 Mg/2 Ml Inj IV Q4HR PRN Nausea And Vomiting Oxytocin 10 unit 05/16/21 19:38 Oxytocin 10 Unit/Ml Vial IM NOW PRN Bleeding Zolpidem Tartrate 5 mg 05/16/21 19:38 Zolpidem 5 Mg Tablet PO BEDTIME PRN Sleep Allergies: Allergies Allergy/AdvReac Type Severity Reaction Status Date / Time Penicillins [PENICILLINS] Allergy Intermediate hives Verified 05/04/21 15:46 Procedure Insertion date: 05/17/21 Insertion time: 04:00 Prep/Local: betadine x3 and 1% lidocaine Interspace: L3-4 Patient position: sitting Needle: 18 gauge RiseSmart (CSE: 27g Pencan through Hustead, clear CSF, 1mL 0.25% bupiv) Loss of resistance with: saline VIKKI at (cm): 3 Catheter placed at SKIN (cm): 8 Catheter in SPACE (cm): 5 Insertion: No CSF, No Blood, No Paresthesia with insertion, No Paresthesia with injection and No Test dose reaction Initial Medications TEST DOSE time: 04:02 TEST DOSE: 1.5% lidocaine with epinephrine 1:200k (mL): 3 BOLUS DOSE time: 04:14 BOLUS DOSE (mL): 3 BOLUS DOSE med: other (infusate) Infusion INFUSION: 0.125% bupivacaine and with fentanyl 2 mcg/mL Initial rate (mL/hr): 6 Subsequent interventions: Post-procedure Anesthesia time START: 03:44 Anesthesia time END: 09:20 Post-procedure Anesthesia Assessment: Yes CV function: HR/BP stable, Yes Resp function: RR/sat/airway adequate, Yes Mental status appropriate and No Anesthesia complications
--- NOTE | 2021-05-17 06:49 | P.HPOB_ITS ---
OB HPI Date/Time Date of admission: 05/16/21 Date Patient Seen: 05/17/21 Time Patient Seen: 07:00 History of Present Condition Chief complaint: observation of labor RICK Calculator Estimated Delivery Date Method Current WG Current Estimate 05/23/21 LMP (Certain) 39w 1d : 4 Para: 2 Narrative: 41-year-old at 39 weeks and 1 day gestation here for induction due to advanced maternal age. She saw Maternal- Medicine early in the for genetic screening. 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 Cell free DNA was normal XX. Expanded carrier testing was abnormal for fragile X as expected but not severe. 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 Overall evaluation was very reassuring in further intervention not required. At 30 weeks an arrhythmia was noted on Doppler in clinic then again captured on the monitor in the center. BPP was normal. She was again referred to maternal medicine. The arrhythmia was not again appreciated. ec hocardiogram normal. Transient arrhythmia most likely due to premature atrial contractions and benign. No further workup recommended. She was hospitalized at 34 weeks for pyelonephritis and did well. No recurrent UTI. She took levothyroxine throughout her for well-controlled hypothyro idism. care: good care, initiated at week # (9), number of visits (12) and pounds weight gain (23) Dating criteria OB: LMP confirmed by 1st trimester US Ultrasounds: normal mid trimester US Obstetrical complications: none Medical complications OB: none Indications Indication for induction OB: other (Advanced maternal age) Preadmission Labs Last OB Lab Results: Blood Type O Positive 05/16/21 20:00 05/16/21 Antibody Screen Negative 05/16/21 20:00 05/16/21 Hematocrit 32.9 % (36-46) L 05/16/21 20:00 05/16/21 Hemoglobin 11.8 g/dL (12.0-16.0) L 05/16/21 20:00 05/16/21 Hepatitis B Surface Antigen Negative s/c (NEGATIVE) 09/22/20 12:09/22/20 Hepatitis C Antibody Negative s/c (NEGATIVE) 09/22/20 12:09/22/20 Rubella Antibody 162.0 IU/mL (>15) 09/22/20 12:09/22/20 Varicella-Zoster IgG Antibody 1475 index (Immune >165) 09/22/20 12:22 09/22/20 Glucose 1 Hour 117 mg/dL (76-139) 03/02/21 16:54 03/02/21 Group B Streptococcus (PCR) Neg for grp b strep 04/27/21 15:35 04/27/21 -: Urine: negative Genetic Screens: Cell-free DNA: Normal and Alpha-fetoprotein: Normal External Labs -: Urine: negative Prior (ies) Past Pregnancies Del. Date GA/Weeks Labor Lgth Wt Sex Route Outcome Anesthesia Place Delv Breastfeed Preg Comp Name 12/19/08 40.5 5 8 lb 6 oz Male vaginal live - full ter epidural [facility] in [facility] 10 mos. none post-dates induction Luis A Patrice 02/16/10 7-8 spontaneous 12/25/10 41.2 1 8 lb 8 oz Male vaginal live - full ter epidural [place], [facility] 10 mos. post-dates induction none Daniel Evaluation Evaluation Baseline heart rate: 130 Variability: Moderate (11-25) monitor accelerations: Present Monitor Decelerations: Variable (rare) Contraction Frequency (minutes): 4 Status: Category ll Dilation (cm): 4 Effacement (%): 90 station: -2 [facility] Medical History Advanced maternal age (AMA) in Hypothyroidism (~2012) Hypothyroidism affecting Pelvic floor dysfunction (10/01/16) Surgical History Anesthesia History of breast augmentation (~2014) [place] teeth extracted (~1999) Family History Father Hypertension Type 1 diabetes Prostate cancer Mother Age: 69 High cholesterol Grandfather Diabetes mellitus Sister Age: 63 Hypertension Sister Age: 61 Hypertension Grandmother Hypertension Stroke Grandmother No problems noted. Grandfather Prostate cancer Social History marital status: unmarried,living together number of children: 2 household members: significant other and family lives independently: Yes caregiver/support person: No housing: house pets and animals: Yes (1 dog: safe.) education level: college occupational status: employed current occupational exposures/hazards: No violet/anglican: Alevism special violet needs: No seatbelt use: always working smoke detector in home: Yes fire extinguisher in home: Yes carbon monox detector in home: Yes firearms in home: No do you feel safe at home: Yes Smoking Status: Never smoker second hand exposure: No alcohol intake: former substance use type: does not use during the past year weight has: remained stable well-balanced diet: daily or most days daily servings fruits/ve-4 caffeine: Yes (1 cup daily. ) Type(s) of exercise: bicycling, regular exercise, weight lifting and resistance training frequency: 3-4 times per week duration: 60-90 minutes/day Meds Home Medications and Allergies Home Medications Medication Instructions Recorded Confirmed Type vits no.126-ferrous fum 1 tab PO DAILY 90 Days #90 tab 09/25/20 05/04/21 Rx 28 mg iron-folic acid 800 mcg tablet (Classic ) levothyroxine 50 mcg tablet 50 mcg PO DAILY #90 tab 10/02/20 05/04/21 Rx hydrocortisone 2.5 % topical cream 1 applic TOPICAL BID PRN #20 g 05/04/21 05/04/21 Rx Allergies Allergy/AdvReac Type Severity Reaction Status Date / Time Penicillins [PENICILLINS] Allergy Intermediate hives Verified 05/04/21 15:46 OB Exam Narrative Exam Narrative: Temperature 36.4 BP 120/56 P 61 HENMT Head: normal to inspection Mouth: oral mucosae normal Eyes General: appearance normal, both eyes and all related structures Resp Effort & Inspection: normal respiratory effort Auscultation: clear to auscultation bilaterally Cardio Rate: regular rate Rhythm: regular rhythm Extremities Lower extremity: Yes normal to inspection; No edema Presentation: vertex Estimated Weight (lbs): 7 Objective Labs Result Diagrams: 05/16/21 20:00 Labs: Laboratory Results - last 24 hr 05/16/21 05/16/21 05/16/21 20:00 20:00 20:00 WBC 7.8 RBC 3.68 L Hgb 11.8 L Hct 32.9 L MCV 89.5 MCH 32.1 MCHC 35.8 RDW 13.5 Plt Count 185 Neut % (Auto) 64.3 Lymph % (Auto) 25.8 [place] % (Auto) 8.2 Eos % (Auto) 0.8 L Baso % (Auto) 0.9 Neut # (Auto) 5000 Lymph # (Auto) 2000 [place] # (Auto) 600 Eos # (Auto) 100 Baso # (Auto) 100 SARS-CoV-2 (PCR) Negative Blood Type O Positive Antibody Screen Negative Assessment and Plan Assessment and Plan Assessment and Plan narrative: 41 year old at 39 weeks and 1 day gestation here for induction for advanced maternal age. She came in last night and received Cervidil. Cervidil removed at 3:18 AM due to painful contractions. She received an epidural shortly thereafte r with excellent pain relief. Rupture of membranes attempted without return of fluid. If contractions do not increase spontaneously, will start pitocin for augmentation and re-evaluate for AROM. Anticipate spontaneous vaginal delivery.
[2021-05-17] MEDS: FENT 2MCG/ML BUPIV 0.125% EPI 200 MCG/100 ML PLAST..BAG 12 MCG EPIDURAL (07:00)
--- NOTE | 2021-05-17 09:45 | PM.OBPRVD ---
Labor & Delivery Delivery date: 05/17/21 Cervical ripening method: per Cervidil protocol Delivery augmentation: rupture of membranes Delivery monitor: external FHT Route of delivery: L&D Laceration Description: None Estimated blood loss (mL): 100 Anesthesia Type: Epidural Narrative: Patient is a 41-year-old at 39 weeks and 1 day who gave on 05/17/21 at 9:20 a.m.. RICK: 05/23/21 Hospital problems: 39 weeks of Advanced maternal age Epidural analgesia STAGE I: Labor Patient presented the night of 05/16/21 for cervical ripening. She received Cervidil and went on to develop painful contractions at approximately 3:00 a.m.. Cervidil was removed and patient received an epidural. She progressed well and was complete at 8:52 a.m.. heart tones were category 1 and 2 throughout stage I due to intermittent variable decelerations with moderate variability. STAGE II: Delivery Patient was complete at 8:52 a.m.. She pushed over several contractions and went on to deliver a vigorous female at 9:20 a.m.. Infant was vertex and BHANU. There was a loose nuchal cord which was reduced. Infant was placed on mother's abdomen. Cord was cut clamped and cut after 1 minute delay. Apgars were 9 and 9. No resuscitation of the required. STAGE III: Placenta/Cord Placenta delivered at 9:24 a.m. after active management and appeared intact with a three-vessel cord. Pitocin bolus given after delivery of placenta. There were no lacerations. Uterine fundus firm below umbilicus after delivery of placenta. Hemostasis assured. EBL: 100 mL. Needle and sponge counts were correct. The vagina was inspected and no items were left in situ. Patient was doing well with her and boyfriend at bedside. Alvin Baby 1: gender: Female Presentation: vertex Position: Left Occiput Anterior Placenta delivery description: Spontaneous Cord Vessel Description: 3 Vessels score (1 min): 9 score (5 min): 9 Plan for aftercare: Routine care
[2021-05-17] MEDS: IBUPROFEN 600 MG TABLET PO ×2 (11:10→16:56)
[2021-05-17] MEDS: DOCUSATE 100 MG CAPSULE PO (11:11)
[2021-05-17] MEDS: PRENATAL VIT,CALC/IRON/FOLIC 1 TABLET 1 TAB PO (11:11)
[2021-05-17] MEDS: OXYTOCIN PREMIX 30 UNIT/500 ML PLAST..BAG 200 UNIT IV (12:03)
[2021-05-18] MEDS: ACETAMINOPHEN 325 MG TABLET 650 MG PO (10:10)
[2021-05-18] MEDS: IBUPROFEN 600 MG TABLET PO (10:12)
[2021-05-18] MEDS: PRENATAL VIT,CALC/IRON/FOLIC 1 TABLET 1 TAB PO (10:12)
[2021-05-18 10:18] VITALS: BP 113/56; PULSE 84; RESP 18; TEMP 36.9
--- NOTE | 2021-05-18 10:49 | PM.OBDS.1 ---
Discharge Providers Provider Date of admission: 05/16/21 19:33 Discharge Date: 05/18/21 Primary care physician: Alissa Stephen DO Consults: 05/18/21 09:47 Consult to Impersonator Character Routine Comment: Discharge provider: Meenu Marin MD Summary Hospital Course Date Patient Seen: 05/18/21 Time Patient Seen: 10:50 Diagnoses: 39 weeks of Advanced maternal age Epidural analgesia Spontaneous vaginal delivery Hospital Course: The pt presented for IOL due to AMA. She received Cervidil and then progressed into active labor. She received an epidural for pain control. She progressed to complete and had a spontaneous vaginal delivery of a viable baby girl without complications. The pt tolerated delivery well. , there were no complications. At the time of discharge she was voiding, ambulating, and passing flatus without difficulty. Her lochia was decreasing appropriately. She was with good latch. Her pain was well controlled. She will f/u in 6 weeks for check. She desires OCPs for contraception. Peripartum Data Infant Delivery Method: Natural Vaginal Laceration Description: None Episiotomy description: None Procedures: Spontaneous vaginal delivery complications: none [place] 1: Gender: Female Disposition of : home Discharge Diagnosis (1) Spontaneous vaginal delivery: Status: Acute (2) Hypothyroidism affecting : Status: Acute (3) arrhythmia affecting , antepartum: Status: Acute (4) Advanced maternal age (AMA) in : Status: Acute Status at Discharge Cognitive/behavioral status at discharge: oriented Functional status at discharge: independent ambulation Overall status at discharge: patient is progressing back to baseline Time Spent with Patient Time attestation: Total time spent providing and/or coordinating discharge services: Objective Labs Result Diagrams: 05/16/21 20:00 Exam Vital Signs (past 8 hours): - 05/18/21 10:18 Temperature 98.4 F Pulse Rate 84 Respiratory Rate 18 Blood Pressure 113/56 L Narrative Exam Narrative: Gen: NAD, sitting comfortably in bed, appears well CV: RRR, no murmurs Resp: clear to auscultation bilaterally Abd: soft, appropriately tender, fundus firm and below the umbilicus, nondistended Ext: no edema Discharge Plan Discharge Plan Patient Disposition: Home Discharge orders & Medications Prescriptions: New acetaminophen 325 mg Tablet 650 mg PO Q6HR PRN (Reason: Pain, Mild (1-3)) Qty: 30 0RF docusate sodium 100 mg Capsule 100 mg PO DAILY Qty: 30 0RF ibuprofen 600 mg Tablet 600 mg PO Q6HR PRN (Reason: Pain, Mild (1-3)) Qty: 30 0RF Continued hydrocortisone 2.5 % cream 1 applic topical BID PRN (Reason: itching) Qty: 20 0RF Classic 28 mg iron- 800 mcg tablet 1 tab PO DAILY 90 Days Qty: 90 4RF Rx Instructions: May substitute any in patient's formulary that has 800 mcg folic acid. Thank you. levothyroxine 50 mcg tablet 50 mcg PO DAILY Qty: 90 3RF Follow up/Referrals: Alissa Stephen DO [Primary Care Provider] - 6 Weeks Diet/Activity/Treatments Diet: Diet as Tolerated and Regular Skin/Wound/Dressing Care Report to your healthcare provider any signs of infection, such as:: chills, fever, increased pain and unusual drainage Visit Report/Discharge Packet Instructions: DI for Labor and Delivery, Vaginal Stand Alone Forms: Discharge: Care Visit Report Forms: Patient Portal/API, Stroke Signs & Symptoms Discharge Data Primary Care Provider: Alissa Stephen
== END 2021-05-18 12:00 | disposition home or self-care (01) | DRG 807 ==
PROVIDERS: Admitting Provider Family Medicine; PCP Family Medicine; Referring Provider Family Medicine; Visit Provider Family Medicine
DX: O99.284 Endocrine, nutritional and metabolic diseases complicating childbirth (principal); Z37.0 Single live birth; Z3A.39 39 weeks gestation of pregnancy; E03.9 Hypothyroidism, unspecified; O69.81X0 Labor and delivery complicated by cord around neck, without compression, not applicable or unspecified; O76 Abnormality in fetal heart rate and rhythm complicating labor and delivery
CPT/HCPCS: 01967; 36415; 59025; 59050; 59200; 59400; 85025; 86850; 86900; 86901; 87635; C9803; G0378; G0379; J2590

== ENCOUNTER → 2021-07-13 14:38 | Outpatient (CLI) | payer OTHER, SELFPAY ==
[2021-07-13 17:12] LABS: TSH w/ Reflex to FT4 0.11 uIU/mL (0.47-4.68)
[2021-07-13 18:10] LABS: Free T4, Direct Thyroxine 1.93 ng/dL (0.78-2.19)
== END ==
PROVIDERS: PCP Family Medicine; Referring Provider Family Medicine; Visit Provider Family Medicine
DX: E06.3 Autoimmune thyroiditis (principal)
CPT/HCPCS: 36415; 84439; 84443

== ENCOUNTER → 2021-10-26 12:45 | Outpatient (CLI) | payer OTHER, SELFPAY ==
[2021-10-26 14:23] LABS: TSH w/ Reflex to FT4 1.72 uIU/mL (0.47-4.68)
== END ==
PROVIDERS: PCP Family Medicine; Referring Provider Family Medicine; Visit Provider Family Medicine
DX: O99.280 Endocrine, nutritional and metabolic diseases complicating pregnancy, unspecified trimester (principal); E03.9 Hypothyroidism, unspecified
CPT/HCPCS: 36415; 84443

== ENCOUNTER → 2022-02-05 13:14 | Outpatient (CLI) | payer OTHER, SELFPAY ==
[2022-02-05 14:11] LABS: Add Manual Diff / Slide Review NO; Basophils Absolute Auto 0 /uL (0-100); Basophils Percent Auto 0.3 % (0-2); Eosinophils Absolute Auto 100 /uL (0-450); Eosinophils Percent Auto 0.6 % (2-4); Hematocrit 41.2 % (36-46); Hemoglobin 14.5 g/dL (12.0-16.0); Lymphocytes Absolute Auto 2800 /uL (1100-4500); Lymphocytes Percent Auto 25.2 % (25-40); Mean Corpuscular HGB Conc 35.2 % (30-36); Mean Corpuscular Hemoglobin 30.7 PG (26-34); Mean Corpuscular Volume 87.2 fL (80-100); Monocytes Absolute Auto 500 /uL (0-900); Monocytes Percent Auto 4.4 % (3-14); Neutrophils Absolute Auto 7800 /uL (1500-7000); Neutrophils Percent Auto 69.5 % (50-75); Platelet Count 261 X10^3/uL (150-400); Red Blood Cell Count 4.72 X10^6/uL (4.0-5.2); White Blood Cell Count 11.2 X10^3/uL (4.5-11.0)
[2022-02-05 14:29] LABS: Alanine Aminotransferase 24 IU/L (<35); Albumin 4.5 g/dL (3.5-5.0); Albumin Globulin Ratio 1.4 (1.0-2.8); Alkaline Phosphatase 50 U/L (38-126); Aspartate Aminotransferase 34 IU/L (14-36); BUN Creatinine Ratio 18.9 (6-22); Bilirubin Total 0.4 mg/dL (0.2-1.3); Blood Urea Nitrogen 17 mg/dL (7-17); Calcium 9.1 mg/dL (8.4-10.2); Carbon Dioxide 29 mmol/L (22-32); Chloride 100 mmol/L (98-107); Estimated Glomerular Filt Rate > 60 mL/min (>60); Globulin 3.2 g/dL (1.7-4.1); Glucose 111 mg/dL (70-100); HEMOLYSIS < 15 (0-50); Potassium 3.8 mmol/L (3.4-5.1); Sodium 139 mmol/L (137-145); Total Protein 7.7 g/dL (6.3-8.2)
[2022-02-05 14:57] LABS: TSH w/ Reflex to FT4 3.43 uIU/mL (0.47-4.68)
== END ==
PROVIDERS: PCP Family Medicine; Referring Provider Family Medicine; Visit Provider Family Medicine
DX: R53.83 Other fatigue (principal)
CPT/HCPCS: 36415; 80053; 84443; 85025

== ENCOUNTER → 2022-03-11 12:59 | Outpatient (CLI) | payer OTHER, SELFPAY ==
--- NOTE | 2022-03-11 | DI.MG.S_ITS ---
BILATERAL DIGITAL SCREENING MAMMOGRAM 3D/2D WITH CAD WITH AUGMENTATION: 03/11/2022 CLINICAL: Routine screening. Family history of breast cancer. Baseline exam. No prior exams were available for comparison. Both breasts are heterogeneously dense, which may obscure small masses (category c / 51-75% glandular tissue). Current study was also evaluated with a Computer Aided Detection (CAD) system. Bilateral breast implants are intact. There are benign calcifications in both breasts. No significant masses, calcifications, or other findings are seen in either breast. IMPRESSION: BENIGN There is no mammographic evidence of malignancy. A 1 year screening mammogram is recommended. Based on the Tyrer Cuzick model (a risk assessment model) the patient's lifetime risk is 12.7% and her 10 year risk is 1.7%. According to the ACR, ACS, and NCCN guidelines, an annual breast MRI exam along with mammogram is recommended if the patient's lifetime risk is 20% or greater. This exam was interpreted at Station ID: [id number]. NOTE: For mammograms, a report in lay terms will be sent to the patient. Approximately 15% of breast malignancies will not be visualized mammographically. In the management of a palpable breast mass, a negative mammogram must not discourage biopsy of a clinically suspicious lesion. Electronically Signed By: Kevin bhagat/patric:03/11/2022 16:19:44 letter sent: Normal Exam ACR BI-RADS Category 2: Benign Finding(s) 3342F
== END ==
PROVIDERS: PCP Family Medicine; Referring Provider Family Medicine; Visit Provider Family Medicine
DX: Z12.31 Encounter for screening mammogram for malignant neoplasm of breast (principal); Z80.3 Family history of malignant neoplasm of breast
CPT/HCPCS: 77063; 77067

== ENCOUNTER → 2022-03-21 14:12 | Outpatient (CLI) | payer OTHER, SELFPAY | PROVIDERS: PCP Family Medicine; Referring Provider Internal Medicine; Visit Provider Internal Medicine | DX: Z23 Encounter for immunization (principal) | CPT/HCPCS: 90471; 90686 ==

== ENCOUNTER → 2022-07-12 07:44 | Outpatient (CLI) | payer OTHER, SELFPAY ==
[2022-07-12 08:15] LABS: Add Manual Diff / Slide Review NO; Basophils Absolute Auto 0 /uL (0-100); Basophils Percent Auto 0.7 % (0-2); Eosinophils Absolute Auto 100 /uL (0-450); Eosinophils Percent Auto 2.3 % (2-4); Hematocrit 38.2 % (36-46); Hemoglobin 13.1 g/dL (12.0-16.0); Lymphocytes Absolute Auto 2100 /uL (1100-4500); Mean Corpuscular HGB Conc 34.3 % (30-36); Mean Corpuscular Hemoglobin 30.4 PG (26-34); Mean Corpuscular Volume 88.8 fL (80-100); Monocytes Absolute Auto 400 /uL (0-900); Monocytes Percent Auto 6.8 % (3-14); Neutrophils Absolute Auto 3200 /uL (1500-7000); Neutrophils Percent Auto 54.2 % (50-75); Platelet Count 241 X10^3/uL (150-400); Red Cell Distribution Width 12.7 % (11.6-14.8); White Blood Cell Count 5.9 X10^3/uL (4.5-11.0)
[2022-07-12 08:18] LABS: INR 0.9 (0.9-1.3); Prothrombin Time 10.7 SECONDS (10.1-12.7)
[2022-07-12 08:46] LABS: TSH w/ Reflex to FT4 4.26 uIU/mL (0.47-4.68)
== END ==
PROVIDERS: PCP Family Medicine; Referring Provider Family Medicine; Visit Provider Family Medicine
DX: R23.3 Spontaneous ecchymoses (principal); E06.3 Autoimmune thyroiditis
CPT/HCPCS: 36415; 84443; 85025; 85610

== ENCOUNTER → 2022-09-18 16:12 | Outpatient (CLI) | payer OTHER, SELFPAY ==
[2022-09-18 18:23] LABS: TSH w/ Reflex to FT4 2.44 uIU/mL (0.47-4.68)
== END ==
PROVIDERS: PCP Family Medicine; Referring Provider Family Medicine; Visit Provider Family Medicine
DX: E06.3 Autoimmune thyroiditis (principal)
CPT/HCPCS: 36415; 84443

== ENCOUNTER → 2022-09-19 08:38 | Outpatient (CLI) | payer OTHER, SELFPAY ==
[2022-09-19 09:10] LABS: Follicle Stimulating Hormone 3.83 mIU/mL
== END ==
PROVIDERS: PCP Family Medicine; Visit Provider Family Medicine
DX: R23.2 Flushing (principal)
CPT/HCPCS: 83001

== ENCOUNTER → 2022-09-23 10:45 | Outpatient (CLI) | payer OTHER, SELFPAY ==
[2022-09-23 11:59] LABS: Add Manual Diff / Slide Review NO; Basophils Absolute Auto 0 /uL (0-100); Basophils Percent Auto 0.7 % (0-2); Eosinophils Absolute Auto 100 /uL (0-450); Eosinophils Percent Auto 1.4 % (2-4); Hematocrit 38.6 % (36-46); Hemoglobin 13.4 g/dL (12.0-16.0); Lymphocytes Absolute Auto 2300 /uL (1100-4500); Lymphocytes Percent Auto 39.1 % (25-40); Mean Corpuscular HGB Conc 34.9 % (30-36); Mean Corpuscular Hemoglobin 30.5 PG (26-34); Mean Corpuscular Volume 87.3 fL (80-100); Monocytes Absolute Auto 400 /uL (0-900); Monocytes Percent Auto 6.7 % (3-14); Neutrophils Absolute Auto 3100 /uL (1500-7000); Neutrophils Percent Auto 52.1 % (50-75); Platelet Count 219 X10^3/uL (150-400); Red Blood Cell Count 4.41 X10^6/uL (4.0-5.2); Red Cell Distribution Width 12.1 % (11.6-14.8); White Blood Cell Count 5.9 X10^3/uL (4.5-11.0)
[2022-09-23 12:14] LABS: Alanine Aminotransferase 24 IU/L (<35); Albumin 4.3 g/dL (3.5-5.0); Albumin Globulin Ratio 1.5 (1.0-2.8); Alkaline Phosphatase 47 U/L (38-126); Aspartate Aminotransferase 30 IU/L (14-36); Bilirubin Total 0.4 mg/dL (0.2-1.3); Blood Urea Nitrogen 17 mg/dL (7-17); C-Reactive Protein Quant 0.8 mg/dL (<1.0); Calcium 9.5 mg/dL (8.4-10.2); Carbon Dioxide 26 mmol/L (22-32); Chloride 104 mmol/L (98-107); Estimated Glomerular Filt Rate > 60 mL/min (>60); Globulin 2.8 g/dL (1.7-4.1); Glucose 77 mg/dL (70-100); HEMOLYSIS < 15 (0-50); Potassium 4.3 mmol/L (3.4-5.1); Sodium 136 mmol/L (137-145); Total Protein 7.1 g/dL (6.3-8.2)
== END ==
PROVIDERS: PCP Family Medicine; Referring Provider Family Medicine; Visit Provider Family Medicine
DX: R61 Generalized hyperhidrosis (principal)
CPT/HCPCS: 36415; 80053; 85025; 86140

== ENCOUNTER → 2022-09-26 06:49 | Outpatient (CLI) | payer OTHER, SELFPAY ==
--- NOTE | 2022-09-26 06:50 | DI.US.S_ITS ---
PROCEDURE: US PELVIC COMPLETE INDICATIONS: abnormal uterine bleeding TECHNIQUE: Real-time scanning was performed of the pelvic organs, with image documentation. Additional endovaginal scanning was necessary due to incomplete visualization of the adnexal and endometrial structures by transabdominal scanning. COMPARISON: None. FINDINGS: Uterus: Uterus is anteverted and normal in size at 7.5 x 5.5 x 4.0 cm. The myometrium is homogeneous. The endometrium measures 3 mm combined thickness. Ovaries: The right ovary measures 2.6 x 2.6 x 1.2 cm, with a calculated ovarian volume of 4 cc. The left ovary measures 1.5 x 1.8 x 1.7 cm, with a calculated ovarian volume of 2 cc. The ovaries have a normal sonographic appearance. Less than 12 follicles can be seen in each ovary. No adnexal masses are seen. Other: No pathologic free abdominal or pelvic fluid. IMPRESSION: Normal sonographic evaluation of the pelvis. No abnormalities identified to explain patient's abnormal uterine bleeding. We strive to produce accurate, complete, and clear reports of imaging services. To assist us in improving patient care, this report was composed using standard report templates and voice recognition software. Therefore, it may contain abnormal punctuation, insertions and/or omissions. Occasional wrong-word or sound-alike substitutions may occur. Though we review the report and make efforts to correct it, we do recommend that the report be read carefully in proper context to recognize any text inaccuracies. Dictated by: Kevin Lopez M.D. on 09/26/2022 at 9:52 Approved by: Kevin Lopez M.D. on 09/26/2022 at 9:53
== END ==
PROVIDERS: PCP Family Medicine; Referring Provider Family Medicine; Visit Provider Family Medicine
DX: N93.9 Abnormal uterine and vaginal bleeding, unspecified (principal)
CPT/HCPCS: 76830; 76856

== ENCOUNTER 2022-12-23 12:24 | Day surgery (SDC) | payer OTHER, SELFPAY ==
[2022-12-18 09:04] VITALS: BMI 28.2
--- NOTE | 2022-12-23 | PATH_ITS ---
[facility] [place] Accession Number: [id number] No. of containers..01 Tissue . 01 Material submitted: . fallopian tube - BILATERAL FALLOPIAN TUBES . 01 Diagnosis: Right and Left Fallopian Tubes, Bilateral Salpingectomy: Two fimbriated fallopian tubes without significant pathologic abnormality. MRV 12/31/2022 1557 Local . 01 Electronically signed: . Jennifer Antunez MD, Pathologist NPI- [id number] . 01 Gross description: . The specimen is received in formalin labeled with the patient's name, , and bilateral fallopian tubes consist of two unoriented violaceous fimbriated fallopian tubes. The first measures 4.8 cm in length and 0.9 cm in diameter. No paratubal cysts are seen. The second measures 4.8 cm in length and ranges from 0.6 to 1.0 cm in diameter. No paratubal cysts are seen. The external surfaces are inked blue and black, respectively. Lumens are identified. Manager [employer] sections to include the entire fimbriae of each tube are submitted in cassettes A1-A2. ([id number]) /MRV 12/27/2022 1827 Local . 01 Pathologist provided ICD-10: Z30.2 . 01 CPT . 493832 Specimen Comment: A courtesy copy of this report has been sent to [phone] Performed at: 01 [facility] [address] [place] [address] [id number] MD Francisco Dumont MD Phone: [phone]
[2022-12-23 12:46] VITALS: BMI 28.2
[2022-12-23 12:59] VITALS: BP 121/78; PULSE 68; RESP 17; TEMP 36.2; O2SAT 98
[2022-12-23] MEDS: LACTATED RINGERS 1,000 ML 100 ML IV (13:06)
--- NOTE | 2022-12-23 14:51 | PM.PREOP ---
Pre-operative Note COVID-19 Criteria for continued procedure: Delay expected to result in less-positive ultimate med/surg outcome Interval Note History & Physical reviewed/Exam performed by Physician: Yes Changes to H&P: No
--- NOTE | 2022-12-23 14:56 | SUR.OPER ---
Lithotomy on padded OR bed, head on pillow, arms secured on padded arm boards at <90 degrees abduction. Legs secured in padded yellow fins stirrups.
[2022-12-23] MEDS: BUPIVACAINE 0.5% (PF) 30 ML, EPINEPHrine 0.15 MG INJ (15:31)
[2022-12-23 15:53] VITALS: BP 126/75; PULSE 92; RESP 13; TEMP 36.2; O2SAT 95
[2022-12-23 15:59] VITALS: BP 117/66; PULSE 78; RESP 12; O2SAT 97
[2022-12-23 16:05] VITALS: BP 128/75; PULSE 90; RESP 12; O2SAT 98
--- NOTE | 2022-12-23 16:09 | PM.OP.1 ---
Operative Date/Time/Diagnoses Date of procedure: 12/23/22 Time of procedure: 16:09 Pre-op diagnosis: Undesired fertility Post-op diagnosis: same Procedure & Clinicians Procedure: Laparoscopic bilateral salpingectomies Same procedure as scheduled: Yes Indications: Undesired fertility Surgeon: Crystal Larose Click Yes if Unassisted: Yes Anesthesia Type: General Operative Notes Findings: Normal uterus, tubes, ovaries. Normal bowel surface. Normal liver edge and gallbladder dome. No evidence of endometriosis. No internal hernias. No endometriosis. Closure Type: primary Specimen(s): other (Bilateral fallopian tubes) Estimated Blood Loss (mL): 5 Blood products transfused: none Procedure in detail: Patient was brought to the operating room where she underwent general anesthesia. She was placed in low yellowfin stirrups and prepped and draped in usual sterile fashion. Pulsatile stockings were in place and functional. Warming was with blankets. A single-tooth tenaculum was placed on the anterior lip of the cervix and the cervix dilated to #6 Hegar dilator. The [employer]s uterine manipulator was placed and balloon inflated with 3 mL of air. The area of the incisions were injected with half percent Marcaine with epinephrine. An incision was made in the umbilicus with a scalpel and the Verres needle placed in the abdomen. Confirmation of correct placement of the needle was performed by withdrawing on the syringe and then allowing fluid to fall freely through the needle. The abdomen was insufflated to 3 L of CO2. A 5 mm trocar was placed under direct visualization. 2 other 5 mm trochars were placed in the right and left lower quadrant under direct visualization after incising the skin. There did not appear to be any damage with placement of the trocars. The right fallopian tube was grasped and removed by cauterizing and cutting the mesosalpinx and across the fallopian tube at the junction with the uterus with the power seal generator. Same procedure was performed on the left fallopian tube. The tubes were brought up out of the abdomen. Adequate hemostasis was noted. The CO2 was allowed to escape from the abdomen. The trochars were removed. Skin was closed with 4-0 monocryl. The patient went to recovery room in good condition. Complications: none Post-operative Condition: stable Disposition: same day surgery Plan for aftercare: Home when awake and stable
== END 2022-12-23 16:30 | disposition home or self-care (01) ==
PROVIDERS: PCP Family Medicine; Referring Provider Specialist; Visit Provider Specialist
PROC: 0UT74ZZ Resection of Bilateral Fallopian Tubes, Percutaneous Endoscopic Approach (ICD-10-PCS; CPT 58661; principal; 2022-12-23 14:30)
DX: Z30.2 Encounter for sterilization (principal)
CPT/HCPCS: 58661; J0171; J0330; J1100; J2405; J2704; J3010; J3490

== ENCOUNTER → 2023-02-19 | Outpatient (CLI) | payer OTHER, SELFPAY | PROVIDERS: PCP Family Medicine; Referring Provider Family Medicine; Visit Provider Family Medicine | DX: Z23 Encounter for immunization (principal) | CPT/HCPCS: 90471; 90686 ==

== ENCOUNTER → 2023-03-20 17:19 | Outpatient (CLI) | payer OTHER, SELFPAY ==
--- NOTE | 2023-03-20 | DI.MG.S_ITS ---
BILATERAL DIGITAL SCREENING MAMMOGRAM 3D/2D WITH CAD WITH AUGMENTATION: 03/20/2023 CLINICAL: Routine screening. Family history of breast cancer. Comparison is made to exam dated: 03/11/2022 mammogram - [facility]. Both breasts are heterogeneously dense, which may obscure small masses (category c / 51-75% glandular tissue). Current study was also evaluated with a Computer Aided Detection (CAD) system. Bilateral breast implants are intact. There are benign calcifications in both breasts. No significant masses, calcifications, or other findings are seen in either breast. There has been no significant interval change. IMPRESSION: BENIGN There is no mammographic evidence of malignancy. A 1 year screening mammogram is recommended. Based on the Tyrer Cuzick model (a risk assessment model) the patient's lifetime risk is 12.6% and her 10 year risk is 1.9%. According to the ACR, ACS, and NCCN guidelines, an annual breast MRI exam along with mammogram is recommended if the patient's lifetime risk is 20% or greater. This exam was interpreted at Station ID: [id number]. NOTE: For mammograms, a report in lay terms will be sent to the patient. Approximately 15% of breast malignancies will not be visualized mammographically. In the management of a palpable breast mass, a negative mammogram must not discourage biopsy of a clinically suspicious lesion. Electronically Signed By: Sathya ahumada/patric:03/21/2023 08:17:00 letter sent: Normal Exam ACR BI-RADS Category 2: Benign Finding(s) 3342F
== END ==
PROVIDERS: PCP Family Medicine; Referring Provider Family Medicine; Visit Provider Family Medicine
DX: Z12.31 Encounter for screening mammogram for malignant neoplasm of breast (principal); Z80.3 Family history of malignant neoplasm of breast
CPT/HCPCS: 77063; 77067

== ENCOUNTER → 2023-07-01 16:53 | Outpatient (CLI) | payer OTHER, SELFPAY ==
[2023-07-01 17:41] LABS: Influenza A - CEPHEID Flu A NEGATIVE (NEGATIVE); Influenza B - CEPHEID Flu B NEGATIVE (NEGATIVE); Respiratory Syncytial Virus Negative (Negative)
[2023-07-01 17:46] LABS: COVID-19 CEPHEID 4-PLEX PCR Negative (Negative)
== END ==
PROVIDERS: PCP Family Medicine; Visit Provider Family Medicine
DX: J02.9 Acute pharyngitis, unspecified (principal)
CPT/HCPCS: 0241U

== ENCOUNTER → 2023-09-24 12:01 | Outpatient (CLI) | payer OTHER, SELFPAY ==
[2023-09-24 13:53] LABS: TSH w/ Reflex to FT4 1.67 uIU/mL (0.47-4.68)
== END ==
LOC: LAB 12:02
PROVIDERS: PCP Family Medicine; Referring Provider Family Medicine; Visit Provider Family Medicine
DX: E03.9 Hypothyroidism, unspecified (principal)
CPT/HCPCS: 36415; 84443

== ENCOUNTER → 2024-06-03 16:55 | Outpatient (CLI) | payer OTHER, SELFPAY ==
--- NOTE | 2024-06-03 | DI.MG.S_ITS ---
BILATERAL DIGITAL SCREENING MAMMOGRAM 3D/2D WITH CAD WITH AUGMENTATION: 06/03/2024 CLINICAL: Routine screening. Family history of breast cancer. Comparison is made to exams dated: 03/20/2023 mammogram and 03/11/2022 mammogram - [facility]. The breasts are heterogeneously dense, which may obscure small masses (category c / 51-75% glandular tissue). Current study was also evaluated with a Computer Aided Detection (CAD) system. Bilateral breast implants are intact. There are benign calcifications in both breasts. No significant masses, calcifications, or other findings are seen in either breast. There has been no significant interval change. IMPRESSION: BENIGN There is no mammographic evidence of malignancy. A 1 year screening mammogram is recommended. Based on the Tyrer Cuzick model (a risk assessment model) the patient's lifetime risk is 12.9% and her 10 year risk is 2.1%. According to the ACR, ACS, and NCCN guidelines, an annual breast MRI exam along with mammogram is recommended if the patient's lifetime risk is 20% or greater. This exam was interpreted at Station ID: [id number]. NOTE: For mammograms, a report in lay terms will be sent to the patient. Approximately 15% of breast malignancies will not be visualized mammographically. In the management of a palpable breast mass, a negative mammogram must not discourage biopsy of a clinically suspicious lesion. Electronically Signed By: Nils mead/patric:06/04/2024 12:43:14 letter sent: Normal Exam ACR BI-RADS Category 2: Benign
== END ==
PROVIDERS: PCP Student in an Organized Health Care Education/Training Program; Referring Provider Student in an Organized Health Care Education/Training Program; Visit Provider Student in an Organized Health Care Education/Training Program
DX: Z12.31 Encounter for screening mammogram for malignant neoplasm of breast (principal); Z80.3 Family history of malignant neoplasm of breast; R92.333 Mammographic heterogeneous density, bilateral breasts
CPT/HCPCS: 77063; 77067